=== PATIENT | female | born 1950 | race Caucasian/White ===

== ENCOUNTER 2018-06-09 00:27 | Outpatient (CLI) | payer MEDICARE, OTHER, SELFPAY ==
--- NOTE | 2018-06-09 08:45 | DI.MAMMO_ITS ---
SYMPTOM/DIAGNOSIS: SCREENING, Z12.431 MAMMOGRAMS: Mammograms were interpreted according to the usual protocol including computer analysis with CAD system, tomosynthesis and C view imaging. Comparison with prior examinations. No masses or microcalcifications are seen. There is nothing to suggest malignancy. Breast density B. IMPRESSION: Category 1-B. Negative mammogram. Routine screening is recommended. MQSA ASSESSMENT OF FINDINGS: Negative. Category 1. Patient will receive a letter notifying them of these results. BI-RADS category B. There are scattered areas of fibroglandular density.
== END 2018-06-09 00:47 ==
PROVIDERS: PCP Nurse Practitioner Family; Visit Provider Nurse Practitioner Family
DX: Z12.31 Encounter for screening mammogram for malignant neoplasm of breast (principal)
CPT/HCPCS: 77063; 77067

== ENCOUNTER 2018-10-06 10:42 | Emergency (ER) | payer MEDICARE, OTHER, SELFPAY ==
[2018-10-06] VITALS (22 sets, daily range): BP systolic 95–147; BP diastolic 46–94; PULSE 55–73; RESP 12–21; TEMP 36.8–37.1; O2SAT 90–98
--- NOTE | 2018-10-06 11:12 | ED.GENADUL_ITS ---
Discharge Plan Disposition Patient Disposition: HOME Condition: Good Discharge Details Chief Complaint: SOB Clinical Impression: Community acquired pneumonia, Cough with hemoptysis Primary Care Provider: Kalyani Kulkarni ED Provider: Terell Cloud Home Meds and New Rx's Prescriptions: New prednisone 50 MG tablet 50 mg PO DAILY Qty: 5 RF: 0 doxycycline hyclate 100 mg tablet 100 mg PO BID Qty: 20 RF: 0 No Action multivitamin [Daily Multi-Vitamin] 1 EACH tablet 1 ea PO DAILY RF: 0 triamcinolone acetonide 60 ML lotion 1 ml Topical TID PRNQty: 1 RF: 1 levothyroxine 100 MCG tablet 100 mcg PO DAILY Qty: 90 RF: 3 simvastatin 20 MG tablet 20 mg PO HS Qty: 90 RF: 3 hydrochlorothiazide 25 MG tablet 25 mg PO DAILY Qty: 90 RF: 3 escitalopram oxalate [Lexapro] 10 MG tablet 10 mg PO DAILY Qty: 90 RF: 3 Metoprolol Succinate [Toprol Xl] 50 MG TAB.ER.24H 50 mg PO DAILY Qty: 90 RF: 3 One-Per-Day [place]-3 1 EACH capsule,delayed release(DR/EC) 1 cap PO DAILY RF: 0 cholecalciferol (vitamin D3) [Vitamin D3] 2,000 UNIT capsule 2,000 unit PO DAILY RF: 0 Discharge Instructions Instructions: Hemoptysis (ED), Community Acquired Pneumonia (ED) Additional Instructions: Please take medication as directed. Please use your home inhaler every 6 hours for the next 2 days. if you notice any worsening of your symptoms, or any new symptoms such as vomiting, diarrhea, fever, chills, shortness of breath, chest pain, numbness, weakness, or fainting , please return immediately to the emergency department for reevaluation. Please follow up with your primary care provider as soon as possible for reassessment and reevaluation. As always, it was a pleasure participating in your medical care today. 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 Hemoptysis is been present for the last 2 days initially with very minimal streaking in her sputum, and then she did expectorate a small clot today, but has had no subsequent episodes since then. Exam demonstrates reassuring vital signs, no concerning lung sounds, no calf tenderness. However because of her symptoms, and family history we will get a CT angiogram to rule out malignancy or PE. I feel her symptoms may be secondary to chronic bronchitis. 1:02 PM Patient's laboratory workup is returned benign, EKG and troponin are normal. Vital signs continue to be reassuring with no evidence of respiratory compromise or other significant abnormality. She has had no hemoptysis here in the ED, and shows no signs of tracy hemoptysis. No signs of respiratory risk at this time. CT scan has returned and per Dr. Villagran, there is no evidence of pulmonary embolism, mass, but there is mild right lower lobe atelectasis. The signs and symptoms are consistent with the patient's symptomatology suspected community- acquired pneumonia. Will start on doxycycline, give steroids to help decrease any significant intrapulmonary inflammation, and recommend close follow-up with her primary care provider. We did discuss the importance of follow-up with eventual pulmonology if her symptoms do not improve and the patient understands. We discussed red flags which return. I have extensively reviewed the treatment plan and discharge instructions with the patient. I have addressed all patient concerns at this time. The patient was made aware of what symptoms to monitor for that would warrant a return to the emergency department. Discussed the plan with the patient, they demonstrate verbal understanding and agreement with our assessment and plan at this time. EKG 10: 53 Rate 68, intervals normal, sinus rhythm, no ST elevation or depressions, no T wave inversions, questionable small Q wave in lead III. HPI General Date/Time Provider Initiated Documentation: 10/06/18 10:58 . HPI Narrative: This is a 68-year-old female with a past medical history of diabetes, family history of lung cancer, she has never smoked before. She presents today for evaluation of cough for the last 2-3 weeks and hemoptysis for the last 2 days. Patient states that she has had multiple other sick contacts at home who have had mild cough and congestion. She to develop the symptoms. Cough is usually a small amount of white/yellow sputum production, however over the last 48 hours she has had a small amount of red streaking, and then this morning she had one episode of a small clot that she coughed up, however no some subsequent episodes of this. She denies any chest pain, or shortness of breath. She denies any pain in her arm neck or shoulders. She denies any vomiting or diarrhea. Denies PE risk factors such as r immobilization, recent surgery, prior history of DVT or PE, family history of PE or DVT, morbid obesity, exogenous estrogen and smoking, history of cancer. He does admit to some occasional longer trips in the car over the last few weeks, but denies any other immobilization. Family history is also positive for lupus but she denies any family history of Zachary's granulomatosis. She is not on blood thinners. She denies fever or chills. No other complaints at this time. Related Data Home Medications Medication Instructions Recorded Confirmed multivitamin [Daily Multi-Vitamin] 1 ea PO DAILY 10/21/14 10/06/18 One-Per-Day [place]-3 1 cap PO DAILY 02/22/15 10/06/18 cholecalciferol (vitamin D3) 2,000 unit PO DAILY 02/22/15 10/06/18 [Vitamin D3] triamcinolone acetonide 1 ml TOPICAL TID PRN #1 bottle 04/23/16 10/06/18 escitalopram oxalate [Lexapro] 10 mg PO DAILY #90 tab-cap 12/03/17 10/06/18 hydrochlorothiazide 25 mg PO DAILY #90 tab-cap 12/03/17 10/06/18 levothyroxine 100 mcg PO DAILY #90 tab-cap 12/03/17 10/06/18 simvastatin 20 mg PO HS #90 tab-cap 12/03/17 10/06/18 doxycycline hyclate 100 mg PO BID #20 tab 10/06/18 prednisone 50 mg PO DAILY #5 tab 10/06/18 Previous Rx's Medication Instructions Recorded escitalopram oxalate [Lexapro] 10 mg PO DAILY #90 tab-cap 12/03/17 hydrochlorothiazide 25 mg PO DAILY #90 tab-cap 12/03/17 levothyroxine 100 mcg PO DAILY #90 tab-cap 12/03/17 simvastatin 20 mg PO HS #90 tab-cap 12/03/17 doxycycline hyclate 100 mg PO BID #20 tab 10/06/18 prednisone 50 mg PO DAILY #5 tab 10/06/18 Allergies Allergy/AdvReac Type Severity Reaction Status Date / Time Sulfa (Sulfonamide Allergy Intermediate corneal Unverified 10/06/18 10:58 Antibiotics) infection lisinopril AdvReac Cough Unverified 10/06/18 10:58 General Stated Complaint: SOB YINA: 3 Review of Systems Review of Systems All systems reviewed & are unremarkable except as noted in HPI and below PFSH Medical History Generalized anxiety disorder (Chronic) Rosacea (Inactive) Hyperlipemia (Chronic) Essential hypertension (Chronic) 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 Sister Depression Brother Essential hypertension Depression Grandfather Neoplasm Grandfather Heart disease Grandmother Heart disease Grandmother No problems noted. Sister Alcohol abuse Essential hypertension Depression Son No problems noted. Daughter Diabetes Essential hypertension Social History Smoking and Tabacco status: Former Tobacco Use Exam Narrative Exam Narrative: 1.Const: Well-nourished, Well-developed, appearing stated age 2.Eyes: PERRL, no conjunctival injection, and symmetrical lids. 3.ENT: Atraumatic external nose and ears. Moist MM. Neck: Symmetric, trachea midline, No thyromegaly. 4.CVS: +S1/S2, No murmurs or gallops. Peripheral pulses 2+ and equal in all extremities. Brisk capillary refill in all extremities. 5.RESP: Unlabored respiratory effort. Clear to auscultation bilaterally. No wheezes rales or rhonchi 6.GI: Soft, Nontender/Nondistended, No hepatosplenomegaly. No guarding or rebound. 7.MSK: Normocephalic/Atraumatic, Extremities w/o deformity or ttp No cyanosis or clubbing, Normal movement of all extremities. No calf tenderness. 8.Skin: Warm, Dry. No rashes or lesions. 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 Sensation grossly intact, no focal neurologic deficits. 10.Psych: (AAO) x3. Appropriate mood and affect Course Vital Signs Temperature 36.8 C 10/06/18 10:54 Pulse 70 10/06/18 10:54 Respiratory Rate 10/06/18 10:54 Blood Pressure 134/94 H 10/06/18 10:54 Pulse Oximetry 98 10/06/18 10:54 Temperature 36.8 C 10/06/18 10:54 Temperature Source Temporal Artery Scan 10/06/18 10:54 Pulse 70 10/06/18 10:54 Respiratory Rate 10/06/18 10:57 Respiratory Effort Non-Labored 10/06/18 10:57 Respiratory Depth Normal 10/06/18 10:57 Respiratory Pattern Normal 10/06/18 10:57 Blood Pressure 134/94 H 10/06/18 10:54 Blood Pressure Position Supine 10/06/18 10:54 Pulse Oximetry 98 10/06/18 10:54 Oxygen Delivery Method Room Air 10/06/18 10:54 Oxygen Flow Rate 0 10/06/18 10:54 Pain Level 0 10/06/18 10:54
[2018-10-06 11:27] LABS: Abs Immature Grans 0.01 k/cumm (0.0-0.09); Absolute Basophil Count 0.03 k/cumm (0.0-0.2); Absolute Eosinophil Count 0.23 k/cumm (0.0-0.7); Absolute Lymphocyte Count 1.47 k/cumm (1.2-3.4); Absolute Monocyte Count 0.62 k/cumm (0.11-0.7); Absolute Neutrophil Count 4.41 k/cumm (1.2-6.7); Basophils % 0.4; Eosinophils % 3.4; HCT 43.9 % (36.0-46.0); HGB 14.9 g/dL (12.0-15.5); Immature Grans % 0.1; Lymphocytes % 21.7; Mean Corp. HGB Concentration 33.9 g/dL (32.0-36.0); Mean Corpuscular Volume 97.1 fL (80-95); Mean Platelet Volume 9.7 fL (8.0-11.0); Monocytes % 9.2; Neutrophils % 65.2; Platelet Count 224 x1000/uL (130-400); RBC 4.52 m/cumm (4.00-5.20); RBC Distribution Width 13.8 % (11.7-14.6); White Blood Cell Count 6.77 k/cumm (4.4-10.8)
[2018-10-06 11:41] LABS: ALT 28 U/L (12-78); AST 19 U/L (15-37); Albumin 3.8 g/dL (3.4-5.0); Alkaline Phosphatase 70 U/L (46-116); Anion Gap 6.1 mmol/L (3-11); BUN 12 mg/dL (7-18); Bilirubin, Total 0.4 mg/dL (0.2-1.0); CO2 31.9 mmol/L (21.0-32.0); CREATININE 0.66 mg/dL (0.55-1.02); Calcium 9.5 mg/dL (8.5-10.1); Chloride 105 mmol/L (98-107); Glucose 103 mg/dL (70-100); NT-proBNP 47 pg/mL; Potassium 3.7 mmol/L (3.5-5.1); Sodium 143 mmol/L (136-145); Total Protein 7.2 g/dL (6.4-8.2)
[2018-10-06 11:42] LABS: Troponin I < 0.02 ng/mL (0.00-0.06)
--- NOTE | 2018-10-06 12:30 | DI.CT_ITS ---
SYMPTOMS/DIAGNOSIS: COUGH X 2 WEEKS, HEMOPTYSIS, FAMILY H/O LUNG CA CHEST CT FOR PULMONARY EMBOLISM: CT angiography was performed with multi slice acquisition and multi planar and 3D reconstruction. The pulmonary arteries and aorta are well opacified with IV contrast. There is mild respiratory motion at the lung bases. No pulmonary artery filling defects are seen. There is no evidence of aortic dissection or aneurysm. There are focal areas of atelectasis in the lower lobes, right greater than left. No pleural or pericardial effusions are seen. No mass or adenopathy is seen. IMPRESSION: Mild lower lobe atelectasis. No evidence of pulmonary emboli or mass.
[2018-10-06] MEDS: Omnipaque 350 MG/ML 100 ML BTL IJ (12:31)
== END 2018-10-06 13:18 | disposition home or self-care (01) ==
PROVIDERS: Emergency Provider Student in an Organized Health Care Education/Training Program; PCP Nurse Practitioner Family
DX: J18.9 Pneumonia, unspecified organism (principal); R04.2 Hemoptysis; Z87.891 Personal history of nicotine dependence
CPT/HCPCS: 36415; 71275; 80053; 93005; 99285; 83880; 84484; 85025; 93010; J3490

== ENCOUNTER 2018-12-04 09:44 | Outpatient (CLI) | payer MEDICARE, OTHER, SELFPAY ==
[2018-12-04 11:19] LABS: Hemoglobin A1C 5.8 % (4.5-6.2)
[2018-12-04 11:33] LABS: Cholesterol 159 mg/dL (50-200); HDL Cholesterol 43 mg/dL (40-60); LDL CHOLESTEROL 95 mg/dL (<100); TSH 1.09 uIU/mL (0.358-3.74); Triglyceride 108 mg/dL (30-150)
[2018-12-04 11:52] LABS: FREE T4 1.16 ng/dL (0.76-1.46)
== END 2018-12-04 10:04 ==
PROVIDERS: PCP Nurse Practitioner Family; Visit Provider Nurse Practitioner Family
DX: E03.9 Hypothyroidism, unspecified (principal); E78.5 Hyperlipidemia, unspecified; R73.03 Prediabetes
CPT/HCPCS: 36415; 80061; 83721; 83036; 84439; 84443

== ENCOUNTER 2019-02-27 04:16 | Outpatient (CLI) | payer MEDICARE, OTHER, SELFPAY ==
[2019-02-27 11:01] LABS: HCT 43.3 % (36.0-46.0); HGB 14.8 g/dL (12.0-15.5); Mean Corp. HGB Concentration 34.2 g/dL (32.0-36.0); Mean Corpuscular Hemoglobin 33.4 pg (27.0-33.0); Mean Corpuscular Volume 97.7 fL (80-95); Platelet Count 215 x1000/uL (130-400); RBC 4.43 m/cumm (4.00-5.20); RBC Distribution Width 13.9 % (11.7-14.6)
[2019-02-27 11:21] LABS: Hemoglobin A1C 5.9 % (4.5-6.2)
[2019-02-27 11:23] LABS: ALT 28 U/L (12-78); AST 18 U/L (15-37); Alkaline Phosphatase 62 U/L (46-116); Anion Gap 10.6 mmol/L (3-11); BUN 13 mg/dL (7-18); Bilirubin, Total 0.4 mg/dL (0.2-1.0); CO2 27.4 mmol/L (21.0-32.0); CREATININE 0.57 mg/dL (0.55-1.02); Calcium 9.3 mg/dL (8.5-10.1); Chloride 105 mmol/L (98-107); FREE T4 1.12 ng/dL (0.76-1.46); Glucose 114 mg/dL (70-100); Magnesium 2.2 mg/dL (1.8-2.4); Sodium 143 mmol/L (136-145); TSH 1.64 uIU/mL (0.36-3.74); Total Protein 6.8 g/dL (6.4-8.2)
[2019-02-27 11:51] LABS: ESR 17 mm/hr (0-30)
[2019-02-27 12:04] LABS: Vitamin B12 1172 pg/mL (193-986)
[2019-02-27 12:05] LABS: Folate > 20.0 ng/mL (8.6-20.0)
== END 2019-02-27 04:36 ==
PROVIDERS: PCP Nurse Practitioner Family; Visit Provider Nurse Practitioner Family
DX: R20.2 Paresthesia of skin (principal); R73.03 Prediabetes; I10 Essential (primary) hypertension; E03.9 Hypothyroidism, unspecified; E78.5 Hyperlipidemia, unspecified
CPT/HCPCS: 36415; 80053; 85027; 85652; 82607; 82746; 83036; 83735; 84439; 84443

== ENCOUNTER 2019-07-13 00:07 | Outpatient (CLI) | payer MEDICARE, OTHER, SELFPAY ==
--- NOTE | 2019-07-13 16:03 | DI.MAMMO_ITS ---
EXAM: MG MAMMO SCREENING CLINICAL HISTORY: screening Z12.39. TECHNIQUE: Full field digital CC and MLO mammographic images were obtained with 3D tomosynthesis and utilizing computer aided detection (CAD). COMPARISON: 2009 through 2017. FINDINGS: Breast density: Category B - Scattered areas of fibroglandular density Masses/Architectural Distortion: None seen. Microcalcifications: No suspicious pleomorphic-type calcifications are seen. Skin Thickening/Nipple Retraction: None. Axilla: Unremarkable. IMPRESSION: 1. BI-RADS category 1, negative. No significant interval change with no specific features of maligna ncy noted. 2. Unless there is more urgent need, screening mammography is recommended, as per [employer] guidelines. A negative radiographic report should not delay biopsy if a dominant or clinically suspicious mass is present. Up to ten percent of cancers are not identified on mammography. A negative report may reinforce clinical impression. Adenosis and dense breasts may obscure an underlying neoplasm. False positive reports average 6 to 10%. Patient will receive a letter notifying them of these results.
== END 2019-07-13 00:27 ==
PROVIDERS: PCP Nurse Practitioner Family; Visit Provider Nurse Practitioner Family
DX: Z12.31 Encounter for screening mammogram for malignant neoplasm of breast (principal)
CPT/HCPCS: 77063; 77067

== ENCOUNTER 2019-08-20 10:36 | Emergency (ER) | payer MEDICARE, OTHER, SELFPAY ==
[2019-08-20 10:40] VITALS: BP 141/70; PULSE 67; RESP 18; TEMP 36.4; O2SAT 97
--- NOTE | 2019-08-20 10:46 | ED.GENADUL_ITS ---
Discharge Plan Disposition Patient Disposition: HOME Discharge Details Chief Complaint: Orthopedic Clinical Impression: Fracture of proximal humerus Primary Care Provider: Kalyani Kulkarni ED Provider: Yahir Vaca Home Meds and New Rx's Prescriptions: New oxycodone 5 mg capsule 5 mg PO Q6H PRN (Reason: pain) Qty: 7 RF: 0 No Action escitalopram oxalate [Lexapro] 10 mg tablet 10 mg PO DAILY Qty: 90 RF: 4 triamcinolone acetonide 0.1 % cream 1 applic TP DAILY PRN (Reason: dermatitis) Qty: 80 RF: 1 simvastatin 20 mg tablet 20 mg PO HS Qty: 90 RF: 4 hydrochlorothiazide 25 mg tablet 25 mg PO DAILY Qty: 90 RF: 4 metoprolol succinate 50 mg tablet extended release 24 hr 50 mg PO DAILY Qty: 90 RF: 4 levothyroxine 100 mcg tablet 100 mcg PO DAILY Qty: 90 RF: 4 varicella-zoster gE-AS01B (PF) 50 mcg/0.5 mL suspension for reconstitution 0.5 ml IM ONCE Qty: 1 RF: 0 ibuprofen 800 mg tablet 800 mg PO TID PRN (Reason: pain) Qty: 90 RF: 1 multivitamin [Daily Multi-Vitamin] 1 EACH tablet 1 ea PO DAILY RF: 0 One-Per-Day [place]-3 1 EACH capsule,delayed release(DR/EC) 1 cap PO DAILY RF: 0 cholecalciferol (vitamin D3) [Vitamin D3] 2,000 UNIT capsule 2,000 unit PO DAILY RF: 0 Discharge Instructions Instructions: Proximal Humerus Fracture (ED) Additional Instructions: Your x-rays confirm a fracture involving the upper arm. We will place you into a simple sling at which point you will need to follow-up with orthopedics to discuss further definitive management. Start taking Tylenol 500 m tabs every 8 hours as needed for pain. You can also supplement ibuprofen 200 m tabs every 8 hours for pain. I have also provided you with a prescription for stronger pain medication, only use if pain is out of control. Return to the emergency department should you develop severe numbness and/or weakness in the forearm/wrist/hand. You must stay in the sling until you are evaluated by orthopedics. Referrals: Rich Vanegas MD [ [facility] STAFF PHYSICIAN] - 3 days Discharge Data Discharge Date/Time-TO BE ENTERED AT DEPARTURE: 08/20/19 11:47 Medical Decision Making This is a nontoxic-appearing 69-year-old female who presents to the emergency department with the above chief complaint. Vital signs stable. Physical exam demonstrates focal tenderness over the right mid proximal humerus. Neurovascularly intact. No other evidence of injury elsewhere. X-ray significant for comminuted slightly displaced proximal humerus fracture. Case discussed with Dr. Vanegas from orthopedics. He is recommending simple sling and follow-up in the office. Patient educated on pain management at home along with return precautions. HPI General Date/Time Provider Initiated Documentation: 08/20/19 10:45 . HPI Narrative: Patient is a 69-year-old female with significant medical history for hypertension on metoprolol not taking any oral anticoagulation who presents to the emergency department status post fall. Patient slipped on the ice striking her right shoulder. She denies any head injury or LOC. No neck pain or tenderness. She denies any numbness or tingling in her right arm. She has been unable to move her right shoulder since the fall. Related Data Home Medications Medication Instructions Recorded Confirmed multivitamin [Daily Multi-Vitamin] 1 ea PO DAILY 10/21/14 08/20/19 One-Per-Day [place]-3 1 cap PO DAILY 02/22/15 08/20/19 cholecalciferol (vitamin D3) 2,000 unit PO DAILY 02/22/15 08/20/19 [Vitamin D3] escitalopram oxalate 10 mg tablet 10 mg PO DAILY #90 tab-cap 12/04/18 08/20/19 hydrochlorothiazide 25 mg tablet 25 mg PO DAILY #90 tab-cap 12/04/18 08/20/19 levothyroxine 100 mcg tablet 100 mcg PO DAILY #90 tab-cap 12/04/18 08/20/19 metoprolol succinate 50 mg 50 mg PO DAILY #90 tab 12/04/18 08/20/19 tablet,extended release 24 hr simvastatin 20 mg tablet 20 mg PO HS #90 tab-cap 12/04/18 08/20/19 triamcinolone acetonide 0.1 % 1 applic TP DAILY PRN #80 gm 12/04/18 08/20/19 topical cream varicella-zoster [id number] (PF) 50 0.5 ml IM ONCE #1 each 12/04/18 08/20/19 mcg/0.5 mL IM susp, kit ibuprofen 800 mg tablet 800 mg PO TID PRN #90 tab 02/26/19 08/20/19 oxycodone 5 mg PO Q6H PRN #7 cap 08/20/19 Previous Rx's Medication Instructions Recorded escitalopram oxalate 10 mg tablet 10 mg PO DAILY #90 tab-cap 12/04/18 hydrochlorothiazide 25 mg tablet 25 mg PO DAILY #90 tab-cap 12/04/18 levothyroxine 100 mcg tablet 100 mcg PO DAILY #90 tab-cap 12/04/18 metoprolol succinate 50 mg 50 mg PO DAILY #90 tab 12/04/18 tablet,extended release 24 hr simvastatin 20 mg tablet 20 mg PO HS #90 tab-cap 12/04/18 triamcinolone acetonide 0.1 % 1 applic TP DAILY PRN #80 gm 12/04/18 topical cream varicella-zoster [id number] (PF) 50 0.5 ml IM ONCE #1 each 12/04/18 mcg/0.5 mL IM susp, kit ibuprofen 800 mg tablet 800 mg PO TID PRN #90 tab 02/26/19 oxycodone 5 mg PO Q6H PRN #7 cap 08/20/19 Allergies Allergy/AdvReac Type Severity Reaction Status Date / Time Sulfa (Sulfonamide Allergy Intermediate corneal Unverified 08/20/19 10:47 Antibiotics) infection lisinopril AdvReac Cough Unverified 08/20/19 10:47 General Stated Complaint: Orthopedic YINA: 3 Review of Systems Constitutional Constitutional: Denies lethargy and Denies weakness ENT Ears, Nose, Mouth, and Throat: Denies neck pain Cardiovascular Cardiovascular: Denies lightheadedness, Denies palpitations and Denies dyspnea Respiratory Respiratory: Denies pain on inspiration and Denies dyspnea Musculoskeletal Musculoskeletal: Denies back pain, Reports limited range of motion, Denies muscle weakness, Denies neck pain, Denies numbness and Denies tingling Neurologic Neurologic: Denies numbness, Denies tingling and Denies weakness Endocrine Endocrine: Denies palpitations Hematologic/Lymphatic Hematologic/Lymphatic: Denies easy bleeding and Denies easy bruising [facility] Medical History Carpal tunnel syndrome (Acute) S/p left endoscopic release 2014, right hasn't been treated yet 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) Essential hypertension (Chronic) Generalized anxiety disorder (Chronic) Hyperlipemia (Chronic) Hypothyroidism (Chronic) Pre-diabetes (Chronic) Rosacea (Inactive) Surgical History H/O: hysterectomy (Inactive ~1995) Ovaries remain History of carpal tunnel surgery of left wrist (Inactive 02/23/15) History of left mastoidectomy (Inactive ~1984) S/P colonoscopy (Acute 03/26/16) S/P tonsillectomy (Acute ~1955) Status post right hip replacement (Inactive ~2009) Family History Mother , 80 of CHF Depression Heart disease Asthma Breast cancer Lung cancer Type 2 diabetes mellitus Father , at 42 of MVA No problems noted. Sister Depression Hyperlipidemia Sister Depression Essential hypertension Alcohol abuse Brother Essential hypertension Hyperlipidemia Son No problems noted. Daughter Type 2 diabetes mellitus Essential hypertension Maternal Grandfather Prostate cancer Maternal Grandmother Heart disease Hyperlipidemia Hypertension Paternal Grandfather Heart disease Paternal Grandmother No problems noted. Social History Smoking/Tobacco Use Status: Former Tobacco Use Quit Date: 08/05/94 Second Hand Exposure: Yes Alcohol Intake: current Alcohol Intake frequency: holidays/special occasions only Alcohol type: wine Drug use: Never Substance use type: does not use Caregiver/Support person: No Household members: significant other Housing: house Communication Needs: Hard of Hearing and Corrective Lenses Do you need help understanding health information?: Rarely Pets and animals: No Sexually active: Yes Do you think of yourself as: straight/heterosexual Current gender identity: female What is your relationship status?: living with partner How often do you talk on the phone with friends or family?: three or more times per week How often do you get together with friends or relatives?: twice per week How often do you attend mandaeism or sikhism services?: decline to answer Do you belong to any clubs or organized social groups?: no Panel score (0-1 are the most socially isolated patients): 2 What type of physical activity do you participate in: walking Duration: 15-30 minutes/day Frequency: daily Shandra/Sikh: Lutheran Special shandra needs: No Seatbelt use: always Drive intox or ride w/intox seasonal driver: No Do you feel safe at home: Yes Do you feel safe in your relationship?: Yes Female Reproductive History Menstrual Menopause type: surgical History History 3 Para 2 Hx # Term Pregnancies Multiple births Hx # Pregnancies Ectopic pregnancies AB induced Hx Number of Living Children 2 AB spontaneous 1 Exam Const General: cooperative, healthy appearing and no acute distress Orientation: alert and awake HENIN Head: normal to inspection, normocephalic and atraumatic Eyes Pupils: PERRL EOM: EOM intact bilaterally Neck Neck: normal visual inspection and full ROM Chest Chest: normal inspection of the chest and normal palpation of entire chest wall Resp Effort & Inspection: normal respiratory effort and able to speak in complete sentences Auscultation: clear to auscultation bilaterally Cardio Pulses: brachial pulses present, radial pulses present and ulnar pulses present Back/Spine/Pelvis Cervical Spine: normal cervical lordosis and cervical ROM normal Thoracic/Lumbar Spine: thoracic and lumbar spine normal to inspection Skin Trauma: no lacerations or abrasions Extrem Right upper extremity: shoulder/upper arm Details: tenderness Location: of the proximal humerus and of the mid-shaft humerus and axillary nerve sensory function normal Course Vital Signs Vital signs: Vital Signs Temperature 36.4 C L 08/20/19 10:40 Pulse 67 08/20/19 10:40 Respiratory Rate 18 08/20/19 10:40 Blood Pressure 141/70 H 08/20/19 10:40 Pulse Oximetry 97 08/20/19 10:40 Temperature 36.4 C L 08/20/19 10:40 Temperature Source Temporal Artery Scan 08/20/19 10:40 Pulse 67 08/20/19 10:40 Respiratory Rate 18 08/20/19 10:40 Blood Pressure 141/70 H 08/20/19 10:40 Blood Pressure Position Sitting 08/20/19 10:40 Pulse Oximetry 97 08/20/19 10:40 Oxygen Delivery Method Room Air 08/20/19 10:40 Oxygen Flow Rate 0 08/20/19 10:40 Pain Level 8 08/20/19 10:40
[2019-08-20] MEDS: Acetaminophen 500 MG TAB 1000 MG PO (10:52)
[2019-08-20] MEDS: oxyCODONE 5 MG TAB PO (10:52)
[2019-08-20 10:55] VITALS: BP 129/54; PULSE 62; O2SAT 94
--- NOTE | 2019-08-20 11:03 | DI.RAD_ITS ---
EXAM: XR SHOULDER RT COMPLETE 2+V INDICATION: mid/prox humerus pain s/p fall. NV intact. COMPARISON: No exams were available for comparison TECHNIQUE: 2D digital imaging was performed. FINDINGS: There is a comminuted fracture of the humeral head. A transverse component extends through the surgi [place] neck. The vertically oriented component extends through greater tuberosity. There is displaceme nt of the humeral shaft medially. There is no evidence of glenohumeral joint dislocation. The joint space does appear mildly widened. The AC joint and visualized right ribs appear intact. IMPRESSION: Comminuted fracture displaced fracture of the humeral head.
[2019-08-20 11:47] VITALS: BP 128/49; PULSE 58; RESP 16; TEMP 36.7; O2SAT 97
[2019-08-20 11:49] VITALS: BP 128/49; PULSE 58; RESP 16; TEMP 36.7; O2SAT 97
== END 2019-08-20 11:47 | disposition home or self-care (01) ==
LOC: ER 12:10
PROVIDERS: Emergency Provider Physician Assistant; PCP Nurse Practitioner Family
DX: S42.291A Other displaced fracture of upper end of right humerus, initial encounter for closed fracture (principal); S42.211A Unspecified displaced fracture of surgical neck of right humerus, initial encounter for closed fracture; W00.0XXA Fall on same level due to ice and snow, initial encounter; I10 Essential (primary) hypertension
CPT/HCPCS: 23600; 73030; L3650

== ENCOUNTER → 2019-08-25 13:39 | Outpatient (BNVA) | payer MEDICARE, OTHER, SELFPAY | PROVIDERS: PCP Nurse Practitioner Family; Referring Provider Nurse Practitioner Family; Visit Provider Student in an Organized Health Care Education/Training Program | DX: S42.291A Other displaced fracture of upper end of right humerus, initial encounter for closed fracture (principal); W00.0XXA Fall on same level due to ice and snow, initial encounter | CPT/HCPCS: 99204; 99215 ==

== ENCOUNTER 2019-08-25 15:45 | Outpatient (CLI) | payer MEDICARE, OTHER, SELFPAY ==
--- NOTE | 2019-08-25 16:02 | DI.CT_ITS ---
EXAM: CT UPPER EXTREMITY RT WO CLINICAL HISTORY: Preoperative planning,CLOSED FX RT PROXIMAL HUMERUS, S42.291A COMPARISON: XR SHOULDER RT COMPLETE 2+V from 08/20/2019 FINDINGS: There is a comminuted fracture of the proximal humerus. The fracture involves the surgical neck and e xtends proximally to involve the greater tuberosity. There is impaction of the fracture. The distal fracture fragment is medially displaced, approximately 1/3 shaft width. The humeral head may be sli ghtly inferiorly subluxed relative to the glenoid. Degenerative changes are seen at the acromioclavicular joint. No other fracture is identified. Visu alized lungs are clear. There is mild edema in the soft tissues. IMPRESSION: Comminuted displaced proximal humeral fracture as described above.
== END 2019-08-25 16:05 ==
PROVIDERS: PCP Nurse Practitioner Family; Visit Provider Student in an Organized Health Care Education/Training Program
DX: S42.211A Unspecified displaced fracture of surgical neck of right humerus, initial encounter for closed fracture (principal)
CPT/HCPCS: 99215; 73200

== ENCOUNTER 2019-08-27 07:36 | Inpatient (IN) | payer MEDICARE, OTHER, SELFPAY ==
[2019-08-27] VITALS (11 sets, daily range): BP systolic 83–150; BP diastolic 42–75; PULSE 66–73; RESP 16–18; TEMP 36–37.5; O2SAT 96–100
[2019-08-27] MEDS: Lactated Ringers 1,000 ML 100 ML IV ×3 (08:10→22:27)
[2019-08-27] MEDS: Bupivacaine 0.5% Pres-Free 30 ML VIAL (08:40)
[2019-08-27] MEDS: Bupivacaine LIPOSOME/PF 133 MG/10 ML VIAL IJ (08:40)
[2019-08-27] MEDS: ceFAZolin 2 GM/50 ML BAG IVPB (09:04)
[2019-08-27] MEDS: Tranexamic Acid 1,000 MG/10 ML VIAL 1000 MG (09:15)
--- NOTE | 2019-08-27 13:31 | DI.RAD_ITS ---
EXAM: XR HUMERUS RT CLINICAL HISTORY: Closed fracture of right proximal humerus. TECHNIQUE: 2D digital imaging was performed. Fluoro time: 79.6 sec, 5.66 mGy COMPARISON: No exams were available for comparison FINDINGS: Fluoroscopy was utilized by orthopedic surgery during the reduction and internal fixation of the prox imal right humeral fracture. The alignment appears near anatomic. The orthopedic hardware appears i n good position. Please refer to the procedure report for complete details.
--- NOTE | 2019-08-27 13:53 | ROE_ITS ---
Date of service: 08/27/19 Time of Service: 13:41 Operative Note Operative Note DATE OF PROCEDURE: 08/27/19 PRE-OP DIAGNOSIS: 1. Right displaced three-part proximal humerus fracture POST-OP DIAGNOSIS: other 1. Right displaced three-part proximal humerus fracture 2. Right incarcerated long head of the biceps tendon PROCEDURE: 1. Right proximal humerus ORIF 2. Right long head of the biceps open tenodesis SURGEON: Navid Su INSTALLER TECHNICIAN: Stephan Herrera ANESTHESIA: GETA and regional ESTIMATED BLOOD LOSS: 250 COMPLICATIONS: None Patient was transported to: PACU Patient's condition: stable Implants: Synthes 3.5 mm LCP proximal humerus plate Indications: Please see complete medical record for details. Procedure Description: The patient was taken to the operating room and transferred to the operating room table. Anesthesia was induced. All bony prominences were well-padded. Preoperative antibiotics were administered. 1 g of TXA was administered. The right shoulder was prepped and draped in the usual sterile fashion. The correct patient, procedure, and side of the procedure were all verified prior to incision. The standard deltopectoral approach was used to obtain access to the proximal humerus fracture. Care was taken to mobilize and protect the cephalic vein medially. Hemorrhagic bursa was removed. Fracture fragments were identified. The anterior, superior, and posterior rotator cuff was tagged using #2 FiberWire at the tendon bone junction for later mobilization repair. Care was taken to avoid dissection medial to the humeral head and neck to preserve blood flow as best possible. The biceps tendon was identified incarcerated between the humeral head greater tuberosity and shaft fracture and components with the distal tendon still present in the groove. A biceps tenodesis was performed in situ to the superior border of the pectoralis major tendon using #2 FiberWire in a [id number] fashion twice. The long head of the biceps remnant was was freed up from the fracture fragments and used to identify the rotator interval before amputating it from the superior labrum. Humeral head, greater tuberosity, and humeral shaft fracture fragments were carefully mobilized and provisionally fixated with bone reduction forceps and K wires. An anatomic precontoured proximal humerus locking plate was placed appropriately lateral to the bicipital groove and distal to superior cuff insertion. This plate was pro visionally held in place using K wires and a cortex shaft screw placed in the oblong hole to allow for adjustments. The reduction and plate placement were confirmed and optimized on orthogonal external rotation and internal rotation AP fluoroscopy. The most superior locking screws were then filled using an osteoporotic bone technique of drilling only the lateral cortex and then using the depth gauge as a sound for screw measurement taking care not to penetrate the articular surface. The distal most locking screws in the shaft were then placed in a bicortical fashion. The remainder of the proximal locking screw options were filled to obtain the most spread and purchase in the humeral head. Orthogonal AP external rotation and internal rotation fluoroscopy as well as modified axial views confirmed appropriate fracture site reductio and hardware placement. Careful inspection revealed to posterior screws that were prominent and they were removed and replaced with a shorter length locking screws and at this point additional x-rays showed no screw prominence or penetration into the joint. The #2 FiberWire previously placed in the rotator cuff was used to augment the repair and secure the anterior superior and posterior superior rotator cuff to the suture holes in the plate. The shoulder was mobilized through a moderate arc of motion and fixation was found to be stable. At 90 d egrees of abduction and external rotation the plate did not impinge with the acromion. The wound was copiously irrigated with normal saline. 1 g of vancomycin powder was distributed about the wound. The interval was reapproximated using 0 Vicryl in an interrupted fashion taking care to bury the cephalic vein atraumatically. Subcutaneous tissues were copiously irrigated with normal saline. Subcutaneous tissue was closed in 2-0 Monocryl in buried interrupted fashion. The skin was closed with 3-0 Monocryl in a buried running subcuticular fashion. Skin glue was applied over the incision followed by a silver impregnated bandage. The right upper sternal wound was carefully placed into a shoulder immobilizer. The patient woke from anesthesia without complication was taken to recovery room in stable condition.
[2019-08-27] MEDS: ceFAZolin 1 GM/50 ML BAG IVPB (17:18)
[2019-08-27] MEDS: Aspirin E.C. 81 MG TABEC PO (17:42)
[2019-08-27] MEDS: Acetaminophen 500 MG TAB 1000 MG PO (19:11)
[2019-08-28] MEDS: ceFAZolin 1 GM/50 ML BAG IVPB ×2 (00:14→09:26)
[2019-08-28] MEDS: oxyCODONE 5 MG TAB PO ×2 (01:44→11:02)
[2019-08-28] MEDS: Naproxen 500 MG TAB PO (04:05)
[2019-08-28 04:55] VITALS: BP 133/78; PULSE 80; RESP 16; TEMP 36.8; O2SAT 98
[2019-08-28 07:00] VITALS: BP 109/70; PULSE 67; RESP 16; TEMP 36.8; O2SAT 93
[2019-08-28] MEDS: Aspirin E.C. 81 MG TABEC PO (07:41)
[2019-08-28] MEDS: Acetaminophen 500 MG TAB 1000 MG PO (07:41)
--- NOTE | 2019-08-28 08:40 | IN_ITS ---
Date of service: 08/28/19 Time of Service: 08:08 PT Notes Visit Reasons: (R) PROXIMAL HUMERUS FX Physical Therapy Inpatient Initial Evaluation Date: 08/28/2019 Referring Doctor: Navid Su M.D. PT Orders: PT CONSULT: s/p ortho surgery. Non weightbearing right upper extremity except for ADLs. Use sling when out of bed. Remove sling when in bed and rest on pillow. Passive range of motion only to the right shoulder. Daily active range of the elbow wrist and fingers. Precautions: Fall. Standard. Activity as tolerated. NWB on R UE. Sling on when out of bed. Patient Profile/Admitting Diagnosis: Pt is a 69-year-old female that had fallen on the ice on 08/20/2019 and reported to the ER where she was diagnosed with a right proximal humeral fracture status post right humeral fracture ORIF on post operative day 1 following surgery on 08/27/2019. 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 She lives at home with her life partner. Notes there are two stairs to enter the home with no railing and they enter through the garage. Equipment Owned/DME: UE sling Subjective: Pt reports that she has not been experiencing any pain. Objective: General Observation: IV line in RUE. mepilex dressing over incision. Mental Status: alert and oriented x4 Pain: 0/10 ROM: Right Upper Extremity: (ALL PASSIVE ROM) Shoulder Flexion 65 degrees. Shoulder abduction 68 degrees. Shoulder extension 15 degrees. Shoulder ER 13 degrees Elbow flexion WFL. Wrist flexion WFL. Opening and closing of hand WFL. Left Upper Extremity: Shoulder Flexion WFL. Shoulder abduction WFL. Elbow flexion WFL. Wrist flexion WFL. Opening and closing of hand WFL. Right Lower Extremity: Hip flexion WFL. Hip abduction WFL. Knee flexion WFL. Ankle dorsiflexion WFL. Ankle plantarflexion WFL. Left Lower Extremity: Hip flexion WFL. Hip abduction WFL. Knee flexion WFL. Ankle dorsiflexion WFL. Ankle plantarflexion WFL. Strength: Right Upper Extremity: Shoulder flexors 5/5. Shoulder abductors 5/5. Elbow flexors 5/5. Elbow extensors 5/5. Defence Intelligence Analyst strong. Left Upper Extremity: Shoulder flexors 5/5. Shoulder abductors 5/5. Elbow flexors 5/5. Elbow extensors 5/5. Defence Intelligence Analyst strong. Sensation: Intact as to pain and pressure on bilateral lower extremities. Bed Mobility/Transfers: Rolling independent but some difficulty due to NWB precautions of RUE Supine to sit independent Sit to supine independent Sit to stand independent; able to push up from bed with LUE only Stand to sit independent Bed to chair independent Chair to bed independent Gait: Pt was able to ambulate 10 feet without an assistive device. Supervision provided by PT and PT student. Balance: Static Sitting: Normal Dynamic Sitting: Normal Static Standing: Normal Dynamic Standing: Normal Special Tests: Mobility Limitations Standardized Measure [facility] AM-PAC 6 clicks Basic Mobility Inpatient Short Form: Raw Score: 24 CMS Score: 0% deficit Informed Consent/Education: Patient instructed in purpose of PT consult and plan of care. Pt was instructed in AROM interventions of the RUE including elbow flexion/extension x10 and wrist flexion x10. Assessment: Pt is a 69-year-old female that had fallen on the ice on 08/20/2019 and reported to the ER where she was diagnosed with a right proximal humeral fracture status post right humeral fracture ORIF on post operative day 1 following surgery on 08/27/2019. Patient presents with clinical signs and symptoms consistent with current/admitting diagnoses that have resulted to mobility limitations, generalized weakness, and impairment of motor control as demonstrated by the following impairment level findings: 1. Decreased strength to R UE shoulder musculature 2. Impaired activity tolerance with R UE 3. Limitation of joint range of motion in R shoulder Impairments are contributing to the following functional limitations: 1. Increased difficulty with bed mobility skills 3. Increase completion time for mobility ADL performance Patient is assessed as a 70238 moderate complexity based on the following: History: Pt presents with impairment level findings and functional limitations as addressed above. Examination: Demonstrable impairment in strength, balance, and range of motion with underlying impairments and functional limitations as documented above Presentation: Evolving Decision Makin moderate complexity Goals: N/A. PT evaluation only. DISCHARGE RECOMMENDATIONS: Discharge to home when medically cleared. Recommend outpatient physical therapy for improved ROM and strength to further improve functional mobility of the RUE. TREATMENT CODE/TIME: 74628 x 27 minutes beginning at 8:08 A.M. THEREX: PROM shoulder abduction in sitting x10 PROM shoulder flexion in sitting x10 PROM shoulder extension in sitting x10 PROM shoulder ER in sitting x10 TREATMENT TME/CODE: 70122 x 27 minutes beginning at 8:08 AM. Thank you very much for this referral. Jermaine Robertson, SPT Doctor of Physical Therapy Student [facility] Supervision provided by Aleisha Groves PT, DPT, CLT [facility] [place], [place]
--- NOTE | 2019-08-28 09:54 | DSE_ITS ---
Date of service: 08/28/19 Time of Service: 09:52 DS: Diagnosis Discharge Diagnosis (1) Tendonitis of long head of biceps brachii of right shoulder: Status: Acute (2) Closed fracture of right proximal humerus: Status: Acute Discharge Plan Disposition Patient Disposition: HOME Condition: Stable Discharge Details Reason For Visit: (R) PROXIMAL HUMERUS FX Admit Date/Time: 08/27/19 07:36 Admit Provider: Navid Su Attending Provider: Navid Su [facility] Hospital Course: Admitted for right shoulder surgery. Postoperative course uneventful. Home Meds and New Rx's Prescriptions: New naproxen 250 mg tablet 250 - 500 mg PO BID PRN (Reason: pain, moderate) Qty: 60 RF: 0 aspirin 81 mg tablet,delayed release (DR/EC) 81 mg PO DAILY 14 Days Qty: 14 RF: 0 ondansetron 4 mg tablet,disintegrating 4 mg PO Q6H PRN (Reason: nausea or vomiting) Qty: 5 RF: 0 oxycodone 5 mg tablet 5 - 10 mg PO Q4H PRN (Reason: moderate to severe pain) Qty: 22 RF: 0 Continued escitalopram oxalate [Lexapro] 10 mg tablet 10 mg PO DAILY Qty: 90 RF: 4 triamcinolone acetonide 0.1 % cream 1 applic TP DAILY PRN (Reason: dermatitis) Qty: 80 RF: 1 simvastatin 20 mg tablet 20 mg PO HS Qty: 90 RF: 4 hydrochlorothiazide 25 mg tablet 25 mg PO DAILY Qty: 90 RF: 4 metoprolol succinate 50 mg tablet extended release 24 hr 50 mg PO DAILY Qty: 90 RF: 4 levothyroxine 100 mcg tablet 100 mcg PO DAILY Qty: 90 RF: 4 varicella-zoster [id number] (PF) 50 mcg/0.5 mL suspension for reconstitution 0.5 ml IM ONCE Qty: 1 RF: 0 multivitamin [Daily Multi-Vitamin] 1 EACH tablet 1 ea PO DAILY RF: 0 One-Per-Day [place]-3 1 EACH capsule,delayed release(DR/EC) 1 cap PO DAILY RF: 0 cholecalciferol (vitamin D3) [Vitamin D3] 2,000 UNIT capsule 2,000 unit PO DAILY RF: 0 Discontinued ibuprofen 800 mg tablet 800 mg PO TID PRN (Reason: pain) Qty: 90 RF: 1 No Action acetaminophen 500 mg Tablet 1,000 mg PO PRN PRNRF: 0 ibuprofen 400 mg Tablet 400 mg PO PRN PRNRF: 0 Discharge Instructions Additional Instructions: Surgery: Right proximal humerus ORIF and biceps tenodesis Activity: You should keep your arm at your side in a neutral position at all times except for physical therapy. Do not try to lift or raise your arm using your own muscles. You should use the sling whenever you are out of the house. You may have to adjust the abduction pillow or remove it for comfort. At home it is best to remove the sling and rest the arm on a pillow at your side or sup port the operative side with your other hand. You may allow the arm to dangle at your side. A physical therapy prescription will be provided separately today. It is important to fully extend and bend her elbow, wrist, and fingers every day to prevent stiffness. Prescriptions: Aspirin 81 mg take 1 daily to prevent a blood clot for 2 weeks Naproxen 250 mg take 1-2 every 12 hours with a meal as needed for moderate pain Oxycodone 5 mg take 1-2 every 4-6 hours as needed for severe pain You may use rezt-qin-[id number] Tylenol (acetaminophen) as needed for mild pain. These pain medications may be taken all at once or in different combinations as needed. Ondansetron (Zofran) 4 mg orally dissolving tablet as needed for nausea or vomiting Also, recommend Colace (docusate) as a stool softener as surgery and pain medicine cause constipation. Dressings: Leave dressing in place until follow-up. Keep clean and dry at all times. Do not shower. Follow-up: 10-[address] Su Please call the office during business hours with any questions or concerns. Let us know right away if you develop any redness, drainage, fevers, chest pain, or trouble breathing. Do not drink alcohol or drive for at least 24 hours after anesthesia. Referrals: Navid Su MD [ [facility] STAFF PHYSICIAN] - Activity:: As above Equipment/Supplies:: Shoulder immobilizer Diet:: As Tolerated Discharge Orders Discharge Orders: Discharge Order (Routine); Ordered 08/28/19 Ordered By: Navid Su DS: Summary Status at Discharge Functional status at discharge: independent ambulation Overall status at discharge: patient is progressing back to baseline Mental Status: mental status grossly normal Speech and Movement: speech and movement normal Mood: congruent mood Affect: normal affect Exam Const General: cooperative and no acute distress Orientation: alert, awake and not confused Limitations: mental status not altered and no language barrier Resp Effort & Inspection: normal respiratory effort, able to speak in complete sentences, no audible wheezes and no grunting General: deferred Skin General skin exam: no rashes or lesions noted Neuro General: alert, awake and oriented x3 Cognition: normal cognition Speech: speech normal Extrem Other: Right shoulder Dressing clean, dry, and intact No erythema or drainage No signs dvt or infection NVI distally with BCR Completely sensory intact axial, median, ulnar, and radial nerves Demonstrates full intact motor wrist and hand All compartments soft Psych Appearance: grossly normal Mental Status: mental status grossly normal Speech and Movement: speech and movement normal Mood: congruent mood Affect: normal affect Attitude: cooperative DS: Data Vitals/I&O Vitals and I&O: Vital Signs Respiratory Effort Non-Labored 08/26/19 08:30 Oxygen Delivery Method Room Air 08/26/19 08:30 Oxygen Flow Rate 0 08/26/19 08:30 Intake & Output 08/26/19 08/26/19 08/27/19 11:59 23:59 11:59 Weight 202 lb [facility] Medical History Carpal tunnel syndrome (Acute) S/p left endoscopic release 2014, right hasn't been treated yet 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) Essential hypertension (Chronic) Generalized anxiety disorder (Chronic) History of postoperative nausea (Acute) Hyperlipemia (Chronic) Hypothyroidism (Chronic) Pre-diabetes (Chronic) Rosacea (Inactive) Surgical History H/O: hysterectomy (Inactive ~1995) Ovaries remain History of carpal tunnel surgery of left wrist (Inactive 02/23/15) History of left mastoidectomy (Inactive ~1984) S/P colonoscopy (Acute 03/26/16) S/P tonsillectomy (Acute ~1955) Status post right hip replacement (Inactive ~2009) Family History Mother , 80 of CHF Depression Heart disease Asthma Breast cancer Lung cancer Type 2 diabetes mellitus Father , at 42 of MVA No problems noted. Sister Depression Hyperlipidemia Sister Depression Essential hypertension Alcohol abuse Brother Essential hypertension Hyperlipidemia Son No problems noted. Daughter Type 2 diabetes mellitus Essential hypertension Maternal Grandfather Prostate cancer Maternal Grandmother Heart disease Hyperlipidemia Hypertension Paternal Grandfather Heart disease Paternal Grandmother No problems noted. Social History Smoking/Tobacco Use Status: Former Tobacco Use Quit Date: 08/05/94 Second Hand Exposure: Yes Alcohol Intake: current Alcohol Intake frequency: holidays/special occasions only Alcohol type: wine Drug use: Never Substance use type: does not use Caregiver/Support person: No Household members: significant other Housing: house Communication Needs: Hard of Hearing and Corrective Lenses Do you need help understanding health information?: Rarely Pets and animals: No Sexually active: Yes Do you think of yourself as: straight/heterosexual Current gender identity: female What is your relationship status?: living with partner How often do you talk on the phone with friends or family?: three or more times per week How often do you get together with friends or relatives?: twice per week How often do you attend denominational or sikhism services?: decline to answer Do you belong to any clubs or organized social groups?: no Panel score (0-1 are the most socially isolated patients): 2 What type of physical activity do you participate in: walking Duration: 15-30 minutes/day Frequency: daily Shandra/Christianity: Druze Special shandra needs: No Seatbelt use: always Drive intox 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
== END 2019-08-28 11:04 | disposition home or self-care (01) | DRG 494 ==
LOC: PDS 07:38 → MS 15:29
PROVIDERS: Admitting Provider Student in an Organized Health Care Education/Training Program; PCP Nurse Practitioner Family; Visit Provider Student in an Organized Health Care Education/Training Program
PROC: 0PSF04Z Reposition Right Humeral Shaft with Internal Fixation Device, Open Approach (ICD-10-PCS; CPT 24420; principal; 2019-08-27 08:30)
PROC: 0PSF04Z Reposition Right Humeral Shaft with Internal Fixation Device, Open Approach (ICD-10-PCS; CPT 23430; 2019-08-27 08:30)
DX: S42.231A 3-part fracture of surgical neck of right humerus, initial encounter for closed fracture (principal); S46.191A Other injury of muscle, fascia and tendon of long head of biceps, right arm, initial encounter; W00.0XXA Fall on same level due to ice and snow, initial encounter; I10 Essential (primary) hypertension
CPT/HCPCS: 23615; 23430; 76942; 97161; NC; 73060; J0690; J1100; J2370; J2405; J2704

== ENCOUNTER 2019-09-08 11:49 | Outpatient (CLI) | payer MEDICARE, OTHER, SELFPAY ==
--- NOTE | 2019-09-08 12:02 | DI.RAD_ITS ---
EXAM: XR SHOULDER RT COMPLETE 2+V INDICATION: Follow up. COMPARISON: XR SHOULDER RT COMPLETE 2+V from 08/20/2019 XR HUMERUS RT from 08/27/2019 TECHNIQUE: 2D digital imaging was performed. FINDINGS: There is again seen a sideplate and screws transfixing the proximal humeral fracture. No change in a lignment of the fracture is noted.
== END 2019-09-08 12:09 ==
PROVIDERS: PCP Nurse Practitioner Family; Referring Provider Nurse Practitioner Family; Visit Provider Student in an Organized Health Care Education/Training Program
DX: S42.231D 3-part fracture of surgical neck of right humerus, subsequent encounter for fracture with routine healing (principal); S42.291D Other displaced fracture of upper end of right humerus, subsequent encounter for fracture with routine healing; S46.191D Other injury of muscle, fascia and tendon of long head of biceps, right arm, subsequent encounter; W00.0XXD Fall on same level due to ice and snow, subsequent encounter; I10 Essential (primary) hypertension
CPT/HCPCS: 73030

== ENCOUNTER 2019-10-13 10:28 | Outpatient (CLI) | payer MEDICARE, OTHER, SELFPAY ==
--- NOTE | 2019-10-13 10:21 | DI.RAD_ITS ---
EXAM: XR SHOULDER RT COMPLETE 2+V CLINICAL HISTORY: Follow up. TECHNIQUE: 2D digital imaging was performed. COMPARISON: XR SHOULDER RT COMPLETE 2+V from 09/08/2019 FINDINGS: BONES: There is again seen a sideplate and screws transfixing the proximal right humeral fracture. T here has been no change in alignment of the orthopedic hardware or fracture components. No bony dest ructive lesion is seen. JOINTS: Degenerative changes are present at the acromioclavicular joint and the glenohumeral joint. SOFT TISSUE: Normal. IMPRESSION: Stable right shoulder. DATA REPOSITORY: RADIATION DOSE DELIVERED:
== END 2019-10-13 10:48 ==
PROVIDERS: PCP Nurse Practitioner Family; Referring Provider Nurse Practitioner Family; Visit Provider Student in an Organized Health Care Education/Training Program
DX: S42.291D Other displaced fracture of upper end of right humerus, subsequent encounter for fracture with routine healing (principal); X58.XXXD Exposure to other specified factors, subsequent encounter; M75.21 Bicipital tendinitis, right shoulder; I10 Essential (primary) hypertension
CPT/HCPCS: 73030

== ENCOUNTER 2019-12-15 09:21 | Outpatient (CLI) | payer MEDICARE, OTHER, SELFPAY ==
--- NOTE | 2019-12-15 09:51 | DI.RAD_ITS ---
EXAM: XR SCAPULA RT CLINICAL HISTORY: fu TECHNIQUE: COMPARISON: No exams were available for comparison FINDINGS: Two views were obtained and show plate and screw fixation of humeral head fracture, no gross interval change in alignment of fracture fragments comparison with previous examination of October 12. IMPRESSION:
== END 2019-12-15 09:41 ==
PROVIDERS: PCP Nurse Practitioner Family; Referring Provider Nurse Practitioner Family; Visit Provider Student in an Organized Health Care Education/Training Program
DX: S42.231D 3-part fracture of surgical neck of right humerus, subsequent encounter for fracture with routine healing (principal); S42.291D Other displaced fracture of upper end of right humerus, subsequent encounter for fracture with routine healing; X58.XXXD Exposure to other specified factors, subsequent encounter; M75.21 Bicipital tendinitis, right shoulder; I10 Essential (primary) hypertension
CPT/HCPCS: 99213; 73010

== ENCOUNTER 2020-03-02 03:30 | Outpatient (CLI) | payer MEDICARE, OTHER, SELFPAY ==
[2020-03-02 13:02] LABS: Hemoglobin A1C 5.9 % (3.8-5.6)
[2020-03-02 13:06] LABS: Anion Gap 7.2 mmol/L (3-11); BUN 10 mg/dL (7-18); CO2 30.8 mmol/L (21.0-32.0); CREATININE 0.67 mg/dL (0.55-1.02); Calcium 9.6 mg/dL (8.5-10.1); Calculated LDL 80 mg/dL (<100); Chloride 104 mmol/L (98-107); Cholesterol 151 mg/dL (<200); Glucose 114 mg/dL (74-106); HDL Cholesterol 43 mg/dL (40-60); Potassium 4.2 mmol/L (3.5-5.1); Sodium 142 mmol/L (136-145); TSH 2.08 uIU/mL (0.36-3.74); Triglyceride 144 mg/dL (<150)
[2020-03-02 13:37] LABS: FREE T4 1.25 ng/dL (0.76-1.46)
== END 2020-03-02 03:50 ==
PROVIDERS: PCP Nurse Practitioner Family; Visit Provider Nurse Practitioner Family
DX: E03.9 Hypothyroidism, unspecified (principal); R73.03 Prediabetes; I10 Essential (primary) hypertension
CPT/HCPCS: 36415; 80048; 80061; 83036; 84439; 84443

== ENCOUNTER → 2020-03-09 09:19 | Outpatient (BNVA) | payer MEDICARE, OTHER, SELFPAY | PROVIDERS: PCP Nurse Practitioner Family; Visit Provider Student in an Organized Health Care Education/Training Program | DX: M25.611 Stiffness of right shoulder, not elsewhere classified; Z47.89 Encounter for other orthopedic aftercare; Z87.81 Personal history of (healed) traumatic fracture | CPT/HCPCS: 99213 ==

== ENCOUNTER 2020-08-16 10:19 | Outpatient (CLI) | payer MEDICARE, OTHER, SELFPAY ==
--- NOTE | 2020-08-16 09:30 | DI.RAD_ITS ---
EXAM: XR SHOULDER RT COMPLETE 2+V INDICATION: F/u. COMPARISON: CR XR SCAPULA RT from 12/15/2019 TECHNIQUE: 2D digital imaging was performed. FINDINGS: Fixation plate is again noted at in the proximal humerus. The fracture has healed. There are degen erative changes of the glenohumeral joint and AC joint. No new abnormalities are seen. DATA REPOSITORY: RADIATION DOSE DELIVERED:
== END 2020-08-16 10:39 ==
PROVIDERS: PCP Nurse Practitioner Family; Referring Provider Nurse Practitioner Family; Visit Provider Student in an Organized Health Care Education/Training Program
DX: S42.291D Other displaced fracture of upper end of right humerus, subsequent encounter for fracture with routine healing; X58.XXXD Exposure to other specified factors, subsequent encounter
CPT/HCPCS: 99213; 73030

== ENCOUNTER 2020-09-08 01:26 | Outpatient (CLI) | payer MEDICARE, OTHER, SELFPAY ==
--- NOTE | 2020-09-08 06:53 | DI.MAMMO_ITS ---
EXAM: MG MAMMO SCREENING CLINICAL HISTORY: screening,Z12.39 TECHNIQUE: Bilateral full field digital CC and MLO mammographic images were obtained with 3D tomosyn thesis and utilizing computer aided detection (CAD). COMPARISON: Available for comparison. FINDINGS: Masses/Architectural Distortion: None seen. Microcalcifications: No suspicious pleomorphic-type are seen. Skin Thickening/Nipple Retraction: None. IMPRESSION: 1. No significant interval change with no specific features of malignancy noted. 2. Unless there is more urgent need, screening mammography is recommended, as per [employer] guidelines. BI-RADS Category 1 - Negative Breast Density - Category B - Scattered areas of fibroglandular density Breast density category C or D implies that the patient has dense breast tissue. Dense breast tissue is very common and is not abnormal but dense breast tissue can make it harder to find cancer on a ma mmogram. Also, dense breast tissue may increase their breast cancer risk. This information about the result of the mammogram report was provided to the patient to raise their awareness. Use this report when you speak with the patient about their risks for breast cancer, which includes their family hist ory. At that time, you may recommend for more screening tests (Ultrasound or MRI) as they might be us eful based on their risk. A negative radiographic report should not delay biopsy if a dominant or clinically suspicious mass is present. Up to ten percent of cancers are not identified on mammography. A negative report may reinforce clinical impression. Adenosis and dense breasts may obscure an underlying neoplasm. False positive reports average 6 to 10%. Patient will receive a letter notifying them of these results.
== END 2020-09-08 01:27 | disposition home or self-care (01) ==
LOC: DI 01:26
PROVIDERS: PCP Nurse Practitioner Family; Visit Provider Nurse Practitioner Family
DX: Z12.31 Encounter for screening mammogram for malignant neoplasm of breast (principal)
CPT/HCPCS: 77063; 77067

== ENCOUNTER → 2020-10-11 13:55 | Outpatient (BNVA) | payer MEDICARE, OTHER, SELFPAY | PROVIDERS: PCP Nurse Practitioner Family; Referring Provider Nurse Practitioner Family; Visit Provider Student in an Organized Health Care Education/Training Program | DX: G56.01 Carpal tunnel syndrome, right upper limb (principal); Z98.890 Other specified postprocedural states; I10 Essential (primary) hypertension | CPT/HCPCS: 99213 ==

== ENCOUNTER → 2020-11-28 14:06 | Outpatient (BNVA) | payer MEDICARE, OTHER, SELFPAY | PROVIDERS: PCP Nurse Practitioner Family; Referring Provider Student in an Organized Health Care Education/Training Program; Visit Provider Nurse Practitioner Adult Health | DX: G56.01 Carpal tunnel syndrome, right upper limb (principal); I10 Essential (primary) hypertension | CPT/HCPCS: 95908; 99203; 99213 ==

== ENCOUNTER → 2020-12-05 13:02 | Outpatient (BNVA) | payer MEDICARE, OTHER, SELFPAY | PROVIDERS: PCP Nurse Practitioner Family; Referring Provider Nurse Practitioner Family; Visit Provider Student in an Organized Health Care Education/Training Program | DX: G56.01 Carpal tunnel syndrome, right upper limb (principal) | CPT/HCPCS: 99213 ==

== ENCOUNTER 2021-01-09 03:59 | Outpatient (CLI) | payer MEDICARE, OTHER, SELFPAY ==
[2021-01-09 11:06] LABS: Source Nasal/Nares
[2021-01-09 15:09] LABS: COVID-19 PCR Negative (Negative)
== END 2021-01-09 04:00 | disposition home or self-care (01) ==
LOC: LBO 03:59
PROVIDERS: PCP Nurse Practitioner Family; Visit Provider Student in an Organized Health Care Education/Training Program
DX: Z20.822 Contact with and (suspected) exposure to COVID-19 (principal); Z01.818 Encounter for other preprocedural examination
CPT/HCPCS: 87635

== ENCOUNTER 2021-01-10 11:00 | Day surgery (SDC) | payer MEDICARE, OTHER, SELFPAY ==
--- NOTE | 2021-01-10 10:31 | PDOC.DSDIS_ITS ---
Discharge Plan Disposition Patient Disposition: HOME Condition: Good Discharge Details Reason For Visit: Left Carpal Tunnel Attending Provider: Rich Vanegas Primary Care Provider: Kalyani Kulkarni Home Meds and New Rx's Prescriptions: New hydrocodone-acetaminophen 5-325 mg tablet 1 tab PO Q6H PRNQty: 5 RF: 0 acetaminophen [Tylenol Extra Strength] 500 mg tablet 500 mg PO Q6H PRNQty: 90 RF: 0 ibuprofen 600 mg tablet 600 mg PO TID Qty: 90 RF: 0 Continued triamcinolone acetonide 0.1 % cream 1 applic TP DAILY PRN (Reason: dermatitis) Qty: 80 RF: 1 vitamin B complex Tablet 1 tab PO DAILY RF: 0 ketoconazole 2 % cream 1 applic topical BID RF: 0 amoxicillin 500 mg capsule 2,000 mg PO ONCE PRN (Reason: Antibiotic prophylaxis for dental procedure) Qty: 20 RF: 0 escitalopram oxalate [Lexapro] 10 mg tablet 10 mg PO DAILY Qty: 90 RF: 4 varicella-zoster [id number] (PF) 50 mcg/0.5 mL suspension for reconstitution 0.5 ml IM ONCE Qty: 1 RF: 0 Ca carbonate-mag oxide-vit C 400 mg calcium -117 mg-167 mg tablet 1 tab PO DAILY RF: 0 multivitamin [Daily Multi-Vitamin] 1 EACH tablet 1 ea PO DAILY RF: 0 simvastatin 20 mg tablet 20 mg PO HS Qty: 90 RF: 4 levothyroxine 100 mcg tablet 100 mcg PO DAILY Qty: 90 RF: 4 hydrochlorothiazide 25 mg tablet 25 mg PO DAILY Qty: 90 RF: 4 metoprolol succinate 50 mg tablet extended release 24 hr 50 mg PO DAILY Qty: 90 RF: 4 ibuprofen 800 mg tablet 800 mg PO BID PRN (Reason: pain) Qty: 60 RF: 0 acetaminophen 500 mg Tablet 1,000 mg PO PRN PRNRF: 0 Discharge Instructions Stand Alone Forms: Romina Downing Tunnel Release Referrals: Rich Vanegas MD [ [facility] STAFF PHYSICIAN] - Activity:: Activity as Tolerated Remove Dressings/Wound Care:: 48 hours Shower/Bathe:: 48 hours Diet:: As Tolerated Discharge Orders Discharge Orders: Discharge Order (Routine); Ordered 01/10/21 Ordered By: Clarissa Rubio DS: Diagnosis Discharge Diagnosis (1) Carpal tunnel syndrome of right wrist: Status: Chronic
[2021-01-10 11:13] VITALS: BP 133/63; PULSE 66; RESP 16; TEMP 36.5; O2SAT 98
--- NOTE | 2021-01-10 11:28 | W.ANESPRE ---
General Info Date of Service Date Performed: 01/10/21 Height: 5 ft 5 in Weight: 96.1 kg Body Mass Index (BMI): 35.2 Surgical Procedure: Operation Date: 01/10/21 12:40 Proposed Procedures Side Surgeon p Wrist ECTR Right Rich Vanegas MD Meds Allergies and Home Medications Allergies Allergy/AdvReac Type Severity Reaction Status Date / Time Sulfa (Sulfonamide Allergy Intermediate corneal Verified 01/10/21 11:08 Antibiotics) infection lisinopril AdvReac Cough Verified 01/10/21 11:08 Home Medication Medication Instructions Recorded multivitamin [Daily Multi-Vitamin] 1 ea PO DAILY 10/21/14 triamcinolone acetonide 0.1 % 1 applic TP DAILY PRN #80 gm 12/04/18 topical cream acetaminophen 1,000 mg PO PRN PRN 08/27/19 calcium carb-magnesium oxide-vit C 1 tab PO DAILY 12/15/19 400 mg calcium-117 mg-167 mg tablet simvastatin 20 mg tablet 20 mg PO HS #90 tab-cap 01/20/20 amoxicillin 500 mg capsule 2,000 mg PO ONCE PRN #20 cap 02/26/20 escitalopram oxalate 10 mg tablet 10 mg PO DAILY #90 tab-cap 02/26/20 varicella-zoster glycoE [id number] 0.5 ml IM ONCE #1 each 02/26/20 adj(PF) 50 mcg/0.5 mL IM susp, kit levothyroxine 100 mcg tablet 100 mcg PO DAILY #90 tab-cap 03/16/20 hydrochlorothiazide 25 mg tablet 25 mg PO DAILY #90 tab-cap 05/02/20 metoprolol succinate 50 mg 50 mg PO DAILY #90 tab 05/02/20 tablet,extended release 24 hr ibuprofen 800 mg tablet 800 mg PO BID PRN #60 tab 11/16/20 vitamin B complex 1 tab PO DAILY 11/28/20 ketoconazole 2 % topical cream 1 applic TOPICAL BID 12/05/20 acetaminophen [Tylenol Extra 500 mg PO Q6H PRN #90 tab 01/10/21 Strength] hydrocodone-acetaminophen 1 tab PO Q6H PRN #5 tab 01/10/21 ibuprofen 600 mg PO TID #90 tab 01/10/21 Current Visit Medications: Current Medications Generic Name Dose Route Start Last Admin Trade Name Freq PRN Reason Stop Dose Admin Acetaminophen 650 mg 01/10/21 10:28 Acetaminophen 325 Mg Tab PO Q4H PRN PRN Hydrocodone Bitart/Acetaminophen 0 tab 01/10/21 10:28 Hydrocodone 5/Acetaminophen 325 Tab PO Q3H PRN PRN Pain Ringer's Solution 1,000 mls @ 80 mls/hr 01/10/21 06:00 IV 02/08/21 23:59 INFUSION JESSE Cefazolin Sodium/Dextrose 2 gm in 50 mls @ 100 mls/hr 01/10/21 06:00 Ancef Duplex IVPB 01/10/21 23:59 PREOP JESSE Ondansetron HCl 4 mg/ Sodium 52 mls @ 200 mls/hr 01/10/21 10:28 Chloride IVPB Q6H PRN PRN IV Miscellaneous Supplies 1 each 01/10/21 06:00 Iv Access IV 02/08/21 23:59 DIRECTED JESSE Sodium Chloride 0 ml 01/10/21 06:00 Normal Saline Flush 10 Ml Syr IV 02/08/21 23:59 PRN PRN Sodium Chloride 0 ml 01/10/21 06:00 Normal Saline 10 Ml Vial IJ 02/08/21 23:59 DIRECTED PRN Sterile Water 0 ml 01/10/21 06:00 Water,Injection,Sterile 10 Ml Vial IJ 02/08/21 23:59 DIRECTED PRN PFSH Active Problems Active Problems: Problem Status Onset Code Carpal tunnel syndrome of right wrist G56.01 Abnormal auditory perception H93.299 Hypothyroidism E03.9 Essential hypertension I10 Pre-diabetes R73.03 Hyperlipemia E78.5 Generalized anxiety disorder F41.1 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 Medical History Medical History Carpal tunnel syndrome S/p left endoscopic release 2014, right hasn't been treated yet Deafness in left ear Essential hypertension Generalized anxiety disorder History of branchial cleft cyst Hyperlipemia Hypothyroidism Pre-diabetes Rosacea 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 Surgical History Surgical History H/O: hysterectomy (~1995) Ovaries remain History of carpal tunnel surgery of left wrist (02/23/15) History of left mastoidectomy (~1984) S/P colonoscopy (03/26/16) S/P ORIF (open reduction internal fixation) fracture (08/27/19) Right proximal humerus S/P tonsillectomy (~1956) Status post Mohs surgery for squamous cell carcinoma of skin (05/19/20) Status post right hip replacement (~2009) Tobacco Smoking/Tobacco Use Status: Former Tobacco Use Passive smoking exposure: Yes Second hand exposure: Yes Alcohol Alcohol Intake: current Alcohol intake frequency: holidays/special occasions only Alcohol type: wine Substance Use Substance use: Never Substance use type: does not use Prental History History 3 Para 2 Hx # Term Pregnancies Multiple births Hx # Pregnancies Ectopic pregnancies AB induced Hx Number of Living Children 2 AB spontaneous 1 Vital Signs and Lab Results Vital Signs Most Recent Vital Signs in EMR: Most Recent Vital Signs Temp Pulse Resp BP Pulse Ox 36.5 C 66 16 133/63 98 01/10/21 11:13 01/10/21 11:13 01/10/21 11:13 01/10/21 11:13 01/10/21 11:13 Lab Results Blood Type / Crossmatch: No Data to Display Complete Blood Count: No Data to Display Complete Metabolic Panel: No Data to Display Liver Function Panel: No Data to Display Coagulation Panel: No Data to Display Cardiac Panel: No Data to Display Arterial Blood Gas: No Data to Display Venous Blood Gas: No Data to Display Pancreas Panel: No Data to Display Thyroid Panel: No Data to Display Infectious Disease: Coronavirus (COVID-19)(PCR) Negative (Negative) 01/09/21 08:56 01/09/21 Coronavirus 2019 Source Nasal/nares 01/09/21 08:56 01/09/21 Blood Cultures: No Data to Display Toxicology Panel: No Data to Display Anesthesia Assessment and Plan Anesthesia History Personal History: No History of Anesthesia Complications Family History: No Family History of Anesthesia Complications Exercise Tolerance Exercise Tolerance: Metabolic Equivalents>4 Pertinent Negatives Pertinent Negatives: No Symptoms of GERD, No Major Cardiovascular Symptoms or Complaints, No Major Pulmonary Symptoms or Complaints and No History of CVA/TIA Cardiac & Pulmonary Exam Cardiac Exam: Normal S1/S2 Heart Sounds Pulmonary Exam: Clear Bilateral Breath Sounds Airway Exam Known Difficult Airway: No Mallampati Class: 3 Mouth Opening: Normal (> 3cm) Thyromental Distance: Greater than 3 cm Neck Range of Motion: Full ROM Neck Circumference: Normal Teeth Condition: Normal Dentition ASA Classification ASA Score: ASA 2 Emergency Case?: No NPO Status NPO Status: NPO Clears >2 hours, Solids >8 hours Anesthesia Plan Resuscitation Status: Full Code Anesthesia Technique: General Anesthesia Airway Planned: Natural Airway Monitors Used: Standard Monitors
[2021-01-10] MEDS: Lactated Ringers 1,000 ML 80 ML IV (11:35)
[2021-01-10 11:47] VITALS: BMI 35.2
[2021-01-10] MEDS: ceFAZolin 2 GM/50 ML BAG IVPB (12:01)
[2021-01-10] MEDS: Sodium Bicarbonate 50 MEQ/50 ML VIAL (12:07)
[2021-01-10 12:19] VITALS: BP 122/46; PULSE 60; RESP 16; TEMP 36.5; O2SAT 94
--- NOTE | 2021-01-10 12:21 | W.ANESPOSTOP ---
Postoperative Evaluation Date, Time and Location Date Performed: 01/10/21 Time Performed: 12:33 Patient Location: Day Surgery Unit Vital Signs Most Recent Imported Vital Signs: Most Recent Vital Signs Temp Pulse Resp BP Pulse Ox 36.5 C 66 16 133/63 98 01/10/21 11:13 01/10/21 11:13 01/10/21 11:13 01/10/21 11:13 01/10/21 11:13 Most Recent Manually Entered Vital Signs: Adult Blood Pressure: 104/41 Heart Rate: 59 Respirations: 16 Oxygen Saturation (%): 94 Temperature (C): 36.4 C Pain Score (0-10 Scale): 0 Pain Score Most Recent Pain Score: 0 Assessment Mental Status: Awake (Alert & Oriented to Patient Baseline) Airway and Respiratory Function: Patent airway with normal (patient baseline) respiratory exam Cardiovascular Function: Hemodynamically Stable Hydration Status: Adequately Hydrated Nausea & Vomiting: No Nausea or Vomiting Pain: Pt. Denies Any Pain Peripheral Nerve Block: Patient did not receive a nerve block
[2021-01-10 12:43] VITALS: BP 104/41; PULSE 59; RESP 16; TEMP 36.4; O2SAT 95
[2021-01-10 12:53] VITALS: BP 104/41; PULSE 59; RESP 16; TEMPC 36.4; O2SAT 94
--- NOTE | 2021-01-10 22:54 | W.PM.OP ---
Date of service: 01/10/21 Time of Service: 12:23 Operative Note Operative Note DATE OF PROCEDURE: 01/10/21 PRE-OP DIAGNOSIS: Right Carpal Tunnel Syndrome POST-OP DIAGNOSIS: same PROCEDURE: Right Endoscopic Carpal Tunnel Release SURGEON: Rich Vanegas ANESTHESIA TYPE: General:No Airway Refer to Anesthesia Record ESTIMATED BLOOD LOSS: 0 PATHOLOGY: none sent TOURNIQUET TIME: 6 COMPLICATIONS: None Patient was transported to: same day Patient's condition: stable Indications: I have seen Rosemary in clinic for symptoms of carpal tunnel syndrome. The numbness, tingling, and pain limited function. Clinical exam findings [with nerve conduction tests ]confirmed the diagnosis of carpal tunnel syndrome. Nonoperative measures such as bracing, time, activity modifications had been tried but disability and pain persisted. I discussed carpal tunnel release with the patient. I reviewed the risks of the procedure to include, but not limited to, bleeding, infection, pain, stiffness, incomplete release, damage to nerves or vessels, persistent numbness, recurrence. Despite these risks, the patient elected to proceed. Findings: There was tightened carpal tunnel. This was dilated and released successfully with the endoscopic with increased space within the tunnel. The antebrachial fascia was released proximally freeing the median nerve at the wrist. Procedure Description: Rosemary was greeted in the preoperative holding area where the correct side was identified and marked. The consent was reviewed with the patient and signed. The history and physical was updated. All questions were answered. She was taken back to the operating room. The patient was placed into the supine position on the operating room table with the right arm on an arm board. A nonsterile tourniquet was placed high onto the arm. All bony prominences were well padded. Prophylactic antibiotics in the form of Cefazolin were administered. The right arm was then prepped with Chloraprep and draped in a standard fashion with stockinette and extremity drape. A timeout to confirm correct identity, side and site, procedure, allergies, anesthesia, and medical concerns was performed. The surgical site was marked in the volar wrist creases in line with the radial border of the fourth ray. This area was anesthetized with approximately 6cc of 1% Lidocaine. The limb was then exsanguinated with an Esmarch. The skin was incised with a 15 blade, approximately 1cm. The skin only was cut and the deeper tissue was dissected bluntly with a tenotomy scissor, avoiding passing nerve and venous structures. The fascia was penetrated and opened bluntly. A two-prong skin hook was placed under this proximal fascial edge. A series of hamate finders were used to identify and dilate the carpal tunnel. Synovial elevator was used to free synovial attachments to the underside of the transverse carpal ligament. My thumb was kept in the palm to renaldo the distal extent of the carpal tunnel and correctly position the hand. The Microaire endoscope was inserted without difficulty and without resistance. Excellent visualization showed horizontally running fibers of the transverse carpal ligament (TCL). The distal extent of the TCL was visualized and the end of the scope palpated with the thumb. The blade was elevated and withdrawn from distal to proximal. The TCL was split into two flaps. The endoscope was reinserted to confirm complete release and any remnant ligament was incised. The scope was withdrawn and the proximal aspect of the carpal tunnel was grossly inspected and appeared release with the median nerve visible. The antebrachial fascia at the level of the wrist was then freed from the overlying skin and then the underlying median nerve with blunt dissection. This was transected longitudinally for about 3cm proximal to the wrist incision. The wound was then irrigated with easy flow of irrigant distally and proximally. The incision was closed with a single 4-0 Nylon suture. The wound was dressed with Xeroform, Gauze, Kerlix and Sky. The tourniquet was deflated with the initial dressing and held with some pressure. Blood flow returned easily to all digits with capillary refill less than 2 seconds. The patient tolerated the procedure well and was returned to the Same Day Surgery area in a stable condition suffering no known complication.
== END 2021-01-10 13:10 | disposition home or self-care (01) ==
LOC: SUR 11:00
PROVIDERS: PCP Nurse Practitioner Family; Visit Provider Student in an Organized Health Care Education/Training Program
PROC: 01N54ZZ Release Median Nerve, Percutaneous Endoscopic Approach (ICD-10-PCS; CPT 29848; principal; 2021-01-10 12:30)
DX: G56.01 Carpal tunnel syndrome, right upper limb (principal); I10 Essential (primary) hypertension; R73.03 Prediabetes; E78.5 Hyperlipidemia, unspecified
CPT/HCPCS: 29848; J0690; J1885; J2001; J2704

== ENCOUNTER → 2021-01-20 09:00 | Outpatient (BNVA) | payer MEDICARE, OTHER, SELFPAY | PROVIDERS: PCP Nurse Practitioner Family; Referring Provider Nurse Practitioner Family; Visit Provider Physician Assistant Surgical | DX: Z47.89 Encounter for other orthopedic aftercare (principal) ==

== ENCOUNTER 2021-02-28 03:25 | Outpatient (CLI) | payer MEDICARE, OTHER, SELFPAY ==
[2021-02-28 12:39] LABS: Hemoglobin A1C 6.1 % (<5.7)
[2021-02-28 12:47] LABS: Anion Gap 8.1 mmol/L (3-11); BUN 15 mg/dL (7-18); CO2 30.9 mmol/L (21.0-32.0); CREATININE 0.7 mg/dL (0.55-1.02); Calcium 9.6 mg/dL (8.5-10.1); Calculated LDL 81 mg/dL (<100); Chloride 105 mmol/L (98-107); Cholesterol 150 mg/dL (<200); Glucose 124 mg/dL (74-106); HDL Cholesterol 45 mg/dL (40-60); Potassium 4.2 mmol/L (3.5-5.1); Sodium 144 mmol/L (136-145); Triglyceride 121 mg/dL (<150)
[2021-02-28 13:09] LABS: FREE T4 0.92 ng/dL (0.76-1.46)
== END 2021-02-28 03:26 | disposition home or self-care (01) ==
LOC: LOS 03:25
PROVIDERS: PCP Nurse Practitioner Family; Visit Provider Nurse Practitioner Family
DX: E03.9 Hypothyroidism, unspecified (principal); E78.5 Hyperlipidemia, unspecified; I10 Essential (primary) hypertension; R73.03 Prediabetes
CPT/HCPCS: 36415; 80048; 80061; 83036; 84439; 84443

== ENCOUNTER 2021-10-27 02:19 | Outpatient (CLI) | payer MEDICARE, OTHER, SELFPAY ==
--- NOTE | 2021-10-27 11:30 | DI.MAMMO_ITS ---
Exam(s) MAMMO SCREENING EXAM: MAMMO SCREENING CLINICAL HISTORY: screening,z12.39 TECHNIQUE: Bilateral full field digital CC and MLO mammographic images were obtained with 3D tomosyn thesis and utilizing computer aided detection (CAD). COMPARISON: Available for comparison. FINDINGS: Masses/Architectural Distortion: None seen. Microcalcifications: No suspicious pleomorphic-type are seen. Skin Thickening/Nipple Retraction: None. IMPRESSION: 1. No significant interval change with no specific features of malignancy noted. 2. Unless there is more urgent need, screening mammography is recommended, as per [employer] [employer] guidelines. BI-RADS Category 1 - Negative Breast Density - Category B - Scattered areas of fibroglandular density Breast density category C or D implies that the patient has dense breast tissue. Dense breast tissue is very common and is not abnormal but dense breast tissue can make it harder to find cancer on a ma mmogram. Also, dense breast tissue may increase their breast cancer risk. This information about the result of the mammogram report was provided to the patient to raise their awareness. Use this report when you speak with the patient about their risks for breast cancer, which includes their family hist ory. At that time, you may recommend for more screening tests (Ultrasound or MRI) as they might be us eful based on their risk. A negative radiographic report should not delay biopsy if a dominant or clinically suspicious mass is present. Up to ten percent of cancers are not identified on mammography. A negative report may reinforce clinical impression. Adenosis and dense breasts may obscure an underlying neoplasm. False positive reports average 6 to 10%. Patient will receive a letter notifying them of these results.
== END 2021-10-27 02:39 ==
PROVIDERS: PCP Nurse Practitioner Family; Visit Provider Nurse Practitioner Family
DX: Z12.31 Encounter for screening mammogram for malignant neoplasm of breast (principal)
CPT/HCPCS: 77063; 77067

== ENCOUNTER 2022-03-13 03:39 | Outpatient (CLI) | payer MEDICARE, OTHER, SELFPAY ==
[2022-03-13 13:03] LABS: Anion Gap 6.1 mmol/L (3-11); BUN 11 mg/dL (7-18); CO2 30.9 mmol/L (21.0-32.0); CREATININE 0.6 mg/dL (0.55-1.02); Calculated LDL 84 mg/dL (<100); Chloride 104 mmol/L (98-107); Cholesterol 149 mg/dL (<200); Glucose 117 mg/dL (74-106); HDL Cholesterol 44 mg/dL (40-60); Sodium 141 mmol/L (136-145); Triglyceride 107 mg/dL (<150)
== END 2022-03-13 03:40 | disposition home or self-care (01) ==
LOC: LOS 03:39
PROVIDERS: PCP Nurse Practitioner; Visit Provider Nurse Practitioner
DX: I10 Essential (primary) hypertension (principal); E03.9 Hypothyroidism, unspecified; R73.03 Prediabetes
CPT/HCPCS: 36415; 80048; 80061; 83036; 84443

== ENCOUNTER 2022-08-27 01:53 | Outpatient (CLI) | payer MEDICARE, OTHER, SELFPAY ==
--- NOTE | 2022-08-27 06:30 | DI.US_ITS ---
Exam(s) US SOFT TISSUE HEAD OR NECK EXAM: US SOFT TISSUE HEAD OR NECK CLINICAL HISTORY: soft tissue abcess,l02.91. TECHNIQUE: Ultrasound was performed using standard protocol. COMPARISON: No exams were available for comparison FINDINGS: Sonographic assessment utilizing grayscale and color Doppler imaging was performed and targeted to th e area of clinical concern. There is a trace amount of fluid directly beneath the skin in the area of the skin lesion. It measur es 12 millimeters transverse by 1 millimeter in depth. IMPRESSION: Minimal subcutaneous fluid. No drainable abscess. DATA REPOSITORY:
== END 2022-08-27 02:13 ==
LOC: DI 01:53
PROVIDERS: PCP Nurse Practitioner Family; Visit Provider Nurse Practitioner Family
DX: L02.91 Cutaneous abscess, unspecified (principal)
CPT/HCPCS: 76536

== ENCOUNTER 2022-08-27 02:59 | Outpatient (CLI) | payer MEDICARE, OTHER, SELFPAY ==
[2022-08-27 07:49] LABS: ESR 9 mm/hr (0-30)
[2022-08-27 07:50] LABS: Abs Immature Grans 0.02 10^3/uL (0.0-0.06); Absolute Basophil Count 0.04 10^3/uL (0.0-0.2); Absolute Eosinophil Count 0.23 10^3/uL (0.0-0.7); Absolute Lymphocyte Count 1.21 10^3/uL (1.2-3.4); Absolute Monocyte Count 0.56 10^3/uL (0.1-0.8); Absolute Neutrophil Count 4.46 10^3/uL (1.2-6.7); Basophils % 0.6; Eosinophils % 3.5; HCT 44.7 % (36.0-46.0); HGB 15.2 g/dL (11.2-15.7); Immature Grans % 0.3; Lymphocytes % 18.6; MCH 33.6 pg (27.0-33.0); MCV 99 fL (80-95); MPV 9.7 fL (8.0-11.0); Monocytes % 8.6; Neutrophils % 68.4; Platelet Count 237 10^3/uL (130-400); RBC 4.52 10^6/uL (3.93-5.22); RDW 13.4 % (11.7-14.6); RDW-SD 48.9 fL; WBC 6.52 10^3/uL (4.4-10.8)
[2022-08-27 09:58] LABS: ALT 30 U/L (14-59); AST 22 U/L (15-37); Albumin 4.1 g/dL (3.4-5.0); Alkaline Phosphatase 80 U/L (46-116); Anion Gap 6.3 mmol/L (3-11); BUN 13 mg/dL (7-18); Bilirubin, Total 0.4 mg/dL (0.2-1.0); CO2 31.7 mmol/L (21.0-32.0); CREATININE 0.8 mg/dL (0.55-1.02); Calcium 9.5 mg/dL (8.5-10.1); Chloride 103 mmol/L (98-107); Estimated GFR 77.75 (mL/min/1.73m2); Glucose 130 mg/dL (74-106); Potassium 3.8 mmol/L (3.5-5.1); Sodium 141 mmol/L (136-145); Total Protein 7.5 g/dL (6.4-8.2)
[2022-08-27 17:12] LABS: CRP, High Sensitivity 2.99 mg/L (See Note)
== END 2022-08-27 03:00 | disposition home or self-care (01) ==
LOC: LBO 02:59
PROVIDERS: PCP Nurse Practitioner Family; Visit Provider Nurse Practitioner Family
DX: L02.11 Cutaneous abscess of neck; L98.8 Other specified disorders of the skin and subcutaneous tissue; Z80.7 Family history of other malignant neoplasms of lymphoid, hematopoietic and related tissues; R22.1 Localized swelling, mass and lump, neck; L30.8 Other specified dermatitis; E07.89 Other specified disorders of thyroid; I10 Essential (primary) hypertension; R73.03 Prediabetes
CPT/HCPCS: 36415; 76536; 80053; 85652; 86141; 85025

== ENCOUNTER 2022-10-31 01:36 | Outpatient (CLI) | payer MEDICARE, OTHER, SELFPAY ==
--- NOTE | 2022-10-31 06:45 | DI.MAMMO_ITS ---
Exam(s) MAMMO SCREENING EXAM: MAMMO SCREENING CLINICAL HISTORY: screening,z12.39 TECHNIQUE: Bilateral full field digital CC and MLO mammographic images were obtained with 3D tomosyn thesis and utilizing computer aided detection (CAD). COMPARISON: Available for comparison. FINDINGS: Masses/Architectural Distortion: None seen. Microcalcifications: No suspicious pleomorphic-type are seen. Stable scattered calcifications in both breasts. Skin Thickening/Nipple Retraction: None. IMPRESSION: 1. No significant interval change with no specific features of malignancy noted. 2. Unless there is more urgent need, screening mammography is recommended, as per [employer] guidelines. BI-RADS Category 2 - Benign Findings Breast Density - Category B - Scattered areas of fibroglandular density Breast density category C or D implies that the patient has dense breast tissue. Dense breast tissue is very common and is not abnormal but dense breast tissue can make it harder to find cancer on a ma mmogram. Also, dense breast tissue may increase their breast cancer risk. This information about the result of the mammogram report was provided to the patient to raise their awareness. Use this report when you speak with the patient about their risks for breast cancer, which includes their family hist ory. At that time, you may recommend for more screening tests (Ultrasound or MRI) as they might be us eful based on their risk. A negative radiographic report should not delay biopsy if a dominant or clinically suspicious mass is present. Up to ten percent of cancers are not identified on mammography. A negative report may reinforce clinical impression. Adenosis and dense breasts may obscure an underlying neoplasm. False positive reports average 6 to 10%. Patient will receive a letter notifying them of these results.
== END 2022-10-31 01:56 ==
LOC: DI 01:36
PROVIDERS: PCP Nurse Practitioner Family; Visit Provider Nurse Practitioner Family
DX: Z12.31 Encounter for screening mammogram for malignant neoplasm of breast (principal)
CPT/HCPCS: 77063; 77067

== ENCOUNTER 2023-01-05 16:13 | Emergency (ER) | payer MEDICARE, OTHER, SELFPAY ==
[2023-01-05 16:18] VITALS: BP 143/64; PULSE 65; RESP 18; TEMP 36.7; O2SAT 95
--- NOTE | 2023-01-05 16:45 | DI.RAD_ITS ---
Exam(s) XR HAND LT COMPLETE EXAM: XR HAND LT COMPLETE CLINICAL HISTORY: fall injury to 3rd metacarpal. TECHNIQUE: 2D digital imaging was performed of the left hand. Three views were obtained. AP, later al and oblique views were obtained. COMPARISON: No exams were available for comparison FINDINGS: BONES: No acute fracture is present. No bony destructive lesion is seen. JOINTS: No dislocation present. Degenerative changes are present in the hand and wrist characterized by joint space narrowing and periarticular spurring. SOFT TISSUE: Normal. IMPRESSION: No acute fracture or dislocation. DATA REPOSITORY: RADIATION DOSE DELIVERED:
--- NOTE | 2023-01-05 16:45 | DI.CT_ITS ---
Exam(s) CT HEAD WO EXAM: CT HEAD WO CLINICAL HISTORY: trauma/fall/ blunt forehead injury. TECHNIQUE: Imaging Protocol: Axial computed tomography images with coronal and sagittal reformatted images were created and reviewed COMPARISON: No exams were available for comparison FINDINGS: Ventricles and Extra axial spaces: Normal in size and morphology for the patient's age. Hemorrhage: None. Cerebral parenchyma: No acute territorial infarct. Subtle areas of decreased attenuation are seen in the white matter likely reflecting chronic microvascular ischemic disease. Midline shift: None. Brainstem/Cerebellum: Normal. Calvarium: Normal. Visualized Paranasal sinuses/Mastoids: Clear. Soft Tissues: There is soft tissue swelling overlying the frontal bones. IMPRESSION: 1. No acute intracranial process. 2. Midline frontal scalp swelling. RADIATION DOSE DELIVERED: 718.77mGy.cm Total DLP DATA REPOSITORY: All CT scans at this facility are submitted to the National Radiology Data Registry (NRDR) Dose Index Registry (DIR) with the [employer] (A[employer]). RADIATION OPTIMIZATION: All CT scans at this facility use at least one of these dose optimization te chniques: automated exposure control; mA and/or kV adjustment per patient size (includes targeted exa ms where dose is matched to clinical indication); or iterative reconstruction.
--- NOTE | 2023-01-05 17:29 | DI.VRAD_ITS ---
PROCEDURE INFORMATION: Exam: XR Left Hand Exam date and time: 01/05/2023 5:21 PM Age: 72 years old Clinical indication: Injury or trauma; Blunt trauma (contusions or hematomas); Hand; Left; Patient HX: Fall injury to 3rd metacarpal TECHNIQUE: Imaging protocol: Radiologic exam of the left hand. Views: 3 or more views. COMPARISON: No relevant prior studies available. FINDINGS: Bones/joints: The bones are demineralized. Chronic degenerative changes. No acute fracture or subluxation. Soft tissues: Unremarkable. IMPRESSION: No acute bony pathology. Dictated and Authenticated by: Mayelin Chavez MD. Ordering:SANJUANITA Rock MD
--- NOTE | 2023-01-05 17:30 | DI.VRAD_ITS ---
PROCEDURE INFORMATION: Exam: CT Head Without Contrast Exam date and time: 01/05/2023 5:11 PM Age: 72 years old Clinical indication: Injury or trauma; Blunt trauma (contusions or hematomas); Patient HX: Trauma/fall/blunt forehead injury TECHNIQUE: Imaging protocol: Computed tomography of the head without contrast. COMPARISON: US SOFT TISSUE HEAD OR NECK 08/27/2022 7:14 AM FINDINGS: Brain: Atrophy and chronic appearing white matter changes. No edema or hemorrhage. Cerebral ventricles: No ventriculomegaly. Paranasal sinuses: No acute sinusitis. Mastoid air cells: No mastoid effusion. Bones/joints: No acute fracture. Soft tissues: Midline frontal scalp swelling/laceration. IMPRESSION: 1. No acute intracranial findings. 2. Midline frontal scalp swelling/laceration. Dictated and Authenticated by: Mayelin Chavez MD. Ordering:SANJUANITA Rock MD
--- NOTE | 2023-01-05 17:53 | ED.GENADUL_ITS ---
Discharge Plan Disposition Patient Disposition: Home Discharge Details Clinical Impression: Head injury, acute, Contusion of hand, left, Laceration of forehead Primary Care Provider: Heidy Edwards ED Provider: Pranav Reis Home Meds and New Rx's Prescriptions: No Action vitamin B complex Tablet 1 tab PO DAILY ketoconazole 2 % cream 1 applic topical BID amoxicillin 500 mg capsule 2,000 mg PO ONCE PRN (Reason: Antibiotic prophylaxis for dental procedure) Qty: 20 0RF Rx Instructions: Take 4 tablets 60min before dental procedure multivitamin [Daily Multi-Vitamin] 1 EACH tablet 1 ea PO DAILY escitalopram oxalate [Lexapro] 10 mg tablet 10 mg PO DAILY Qty: 90 3RF hydrochlorothiazide 25 mg tablet 25 mg PO DAILY Qty: 90 3RF levothyroxine 100 mcg tablet 100 mcg PO DAILY Qty: 90 3RF metoprolol succinate 50 mg tablet extended release 24 hr 50 mg PO DAILY Qty: 90 3RF simvastatin 20 mg tablet 20 mg PO HS Qty: 90 3RF triamcinolone acetonide 0.1 % cream 1 applic TP DAILY PRN (Reason: dermatitis) Qty: 80 1RF acetaminophen 500 mg Tablet 1,000 mg PO PRN PRN Discharge Instructions Instructions: Head Injury (ED), Contusion in Adults (ED), Skin Adhesive Care (ED) Additional Instructions: You may take [id number] acetaminophen as needed for pain and discomfort. Please continue to monitor symptoms and return to the emergency department immediately for any new or significant worsening symptoms otherwise follow-up with your primary care provider as needed. Please do not apply any Vaseline products or antibiotic ointment to the glue as this will prematurely remove it. Referrals: Heidy Edwards NP [Primary Care Provider] - (As needed for reassessment) Discharge Data Discharge Date/Time-TO BE ENTERED AT DEPARTURE: 01/05/23 18:17 Medical Decision Making Patient presenting to the emergency department for chief complaint of mechanical fall with head injury and left hand injury. She states she was walking through her basement and tripped striking her head against the concrete floor and injuring her hand on a unknown object. Patient denies any loss of consciousness, nausea vomiting, focal neurological findings. Physical exam shows a 2 cm laceration that is superficial to the forehead which was cleansed appropriately by nursing staff and repaired with skin adhesive. Patient reports that she is up-to-date on her tetanus. Exam also shows a area of swelling ecchymosis and tenderness to the distal dorsal hand mainly over the third metacarpal. Given mechanism of injury and patient's age will perform CT imaging of head and also plain film imaging of left hand. Patient denies any need for pain medication pending results. Review of radiological imaging shows no acute findings on patient's hand and only soft tissue findings on head CT. Patient reassessed and continues to deny any worrisome symptoms so will discharge patient to continue to monitor symptoms at home and return for any new or worsening of condition. After discussion of diagnosis and plan of care patient has no further needs, questions, or concerns and states clear understanding to return to the emergency department for any worsening symptoms. This documentation was generated using [employer] system, please disregard any oddities of phrase or misspellings. Imaging Data Radiologic Study: Attestation: I personally reviewed and interpreted this imaging study as follows: Imaging: X-Ray Radiologist's impression: Exam(s) PROCEDURE INFORMATION: Exam: XR Left Hand Exam date and time: 01/05/2023 5:21 PM Age: 72 years old Clinical indication: Injury or trauma; Blunt trauma (contusions or hematomas); Hand; Left; Patient HX: Fall injury to 3rd metacarpal TECHNIQUE: Imaging protocol: Radiologic exam of the left hand. Views: 3 or more views. COMPARISON: No relevant prior studies available. FINDINGS: Bones/joints: The bones are demineralized. Chronic degenerative changes. No acute fracture or subluxation. Soft tissues: Unremarkable. IMPRESSION: No acute bony pathology. Radiologic Study #2: Imaging: CT Scan Radiologist's impression: Exam(s) PROCEDURE INFORMATION: Exam: CT Head Without Contrast Exam date and time: 01/05/2023 5:11 PM Age: 72 years old Clinical indication: Injury or trauma; Blunt trauma (contusions or hematomas); Patient HX: Trauma/fall/blunt forehead injury TECHNIQUE: Imaging protocol: Computed tomography of the head without contrast. COMPARISON: US SOFT TISSUE HEAD OR NECK 08/27/2022 7:14 AM FINDINGS: Brain: Atrophy and chronic appearing white matter changes. No edema or hemorrhage. Cerebral ventricles: No ventriculomegaly. Paranasal sinuses: No acute sinusitis. Mastoid air cells: No mastoid effusion. Bones/joints: No acute fracture. Soft tissues: Midline frontal scalp swelling/laceration. IMPRESSION: 1. No acute intracranial findings. 2. Midline frontal scalp swelling/laceration. HPI General Mode of arrival: ambulatory . Date/Time Provider Initiated Documentation: 01/05/23 16:14 . Limitations to Documentation: no limitations . Information obtained by: patient and RN notes reviewed . History of Present Illness 72 year old F presents to the emergency department with the chief complaint of Fall with forehead laceration and left hand injury, described as moderate, Quality is described as aching, and is localized to the left and upper extremity. Patient started experiencing this hour(s) (1) and it has been constant. No relieving factors improve symptom(s), No exacerbating factors reported . Patient notes no other symptoms.. Patient did receive the following treatments prior to arrival, none Related Data Home Medications Medication Instructions Recorded Confirmed multivitamin (Daily Multi-Vitamin 1 ea PO DAILY 10/21/14 08/22/22 tablet) acetaminophen 500 mg tablet 1,000 mg PO PRN PRN 08/27/19 08/22/22 vitamin B complex 1 tab PO DAILY 11/28/20 08/22/22 ketoconazole 2 % topical cream 1 applic topical BID 12/05/20 08/22/22 escitalopram oxalate 10 mg tablet 10 mg PO DAILY #90 tab-caps 03/12/22 08/22/22 (Lexapro) hydrochlorothiazide 25 mg tablet 25 mg PO DAILY #90 tab-caps 03/12/22 08/22/22 levothyroxine 100 mcg tablet 100 mcg PO DAILY #90 tab-caps 03/12/22 08/22/22 metoprolol succinate 50 mg 50 mg PO DAILY #90 tabs 03/12/22 08/22/22 tablet,extended release 24 hr simvastatin 20 mg tablet 20 mg PO HS #90 tab-caps 03/12/22 08/22/22 triamcinolone acetonide 0.1 % 1 applic topical DAILY PRN 03/12/22 08/22/22 topical cream dermatitis #80 grams amoxicillin 500 mg capsule 2,000 mg PO ONCE PRN Antibiotic 03/30/22 08/22/22 prophylaxis for dental procedure #20 caps Previous Rx's Medication Instructions Recorded escitalopram oxalate 10 mg tablet 10 mg PO DAILY #90 tab-caps 03/12/22 (Lexapro) hydrochlorothiazide 25 mg tablet 25 mg PO DAILY #90 tab-caps 03/12/22 levothyroxine 100 mcg tablet 100 mcg PO DAILY #90 tab-caps 03/12/22 metoprolol succinate 50 mg 50 mg PO DAILY #90 tabs 03/12/22 tablet,extended release 24 hr simvastatin 20 mg tablet 20 mg PO HS #90 tab-caps 03/12/22 triamcinolone acetonide 0.1 % 1 applic topical DAILY PRN 03/12/22 topical cream dermatitis #80 grams amoxicillin 500 mg capsule 2,000 mg PO ONCE PRN Antibiotic 03/30/22 prophylaxis for dental procedure #20 caps Allergies Allergy/AdvReac Type Severity Reaction Status Date / Time Sulfa (Sulfonamide Allergy Intermediate corneal Verified 01/08/23 16:05 Antibiotics) infection adhesive tape Allergy Mild Rash, Cut Verified 01/08/23 16:05 murphy lisinopril AdvReac Cough Verified 01/08/23 16:05 General Stated Complaint: HeadInjury YINA: 3 Review of Systems Constitutional Constitutional: Denies daytime sleepiness, Denies frequent falls and Denies headache(s) Eyes Eyes: Denies change in vision ENT Ears, Nose, Mouth, and Throat: Denies vertigo, Denies dizziness, Denies ear discharge, Denies headache(s), Denies epistaxis and Denies neck pain Cardiovascular Cardiovascular: Denies chest pain, Denies syncope and Denies dyspnea Respiratory Respiratory: Denies dyspnea Gastrointestinal Gastrointestinal: Denies nausea and Denies vomiting Musculoskeletal Musculoskeletal: Reports as per HPI, Denies back pain, Reports arthralgias, Reports joint swelling and Denies neck pain Neurologic Neurologic: Denies confusion, Denies vertigo, Denies dizziness, Denies syncope, Denies frequent falls and Denies headache(s) Psychiatric Psychiatric: Denies confusion PFSH All Active Problems (Updated 01/05/23 @ 18:04 by Pranav Reis, JESENIA) Head injury, acute (Acute) Contusion of hand, left (Acute) Laceration of forehead (Acute) Soft tissue abscess (Acute) right side of neck going on for 3 weeks now. 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 Surgical History H/O: hysterectomy (~1995) Ovaries remain History of carpal tunnel surgery of left wrist (02/23/15) History of carpal tunnel surgery of right wrist (01/10/21) History of left mastoidectomy (~1984) S/P colonoscopy (03/26/16) S/P ORIF (open reduction internal fixation) fracture (08/27/19) Right proximal humerus S/P tonsillectomy (~1955) Status post Mohs surgery for squamous cell carcinoma of skin (05/19/20) Status post right hip replacement (~2009) Family History Mother , 80 of CHF Depression Heart disease Asthma Breast cancer Lung cancer Type 2 diabetes mellitus Father , at 42 of MVA Alcohol abuse Sister Depression Hyperlipidemia Alcohol abuse Sister Depression Essential hypertension Alcohol abuse Heart disease Stroke Brother Essential hypertension Hyperlipidemia Son No problems noted. Daughter Type 2 diabetes mellitus Essential hypertension Hyperlipidemia Maternal Grandfather Prostate cancer Maternal Grandmother Heart disease Hyperlipidemia Hypertension Paternal Grandfather Heart disease Paternal Grandmother No problems noted. Social History Smoking/Tobacco Use Status: Former Tobacco Use tobacco type: cigarettes Quit Date: 08/05/94 Tobacco: How many years used: 20 Second Hand Exposure: Yes Smoking risk assessment performed?: Yes Alcohol Intake: current Alcohol Intake frequency: holidays/special occasions only Drug use: Never Substance use type: does not use Household members: significant other Housing: house Communication Needs: Hard of Hearing Do you need help understanding health information?: Rarely Pets and animals: No Sexually active: Yes Do you think of yourself as: straight/heterosexual Current gender identity: female What is your relationship status?: How often do you talk on the phone with friends or family?: three or more times per week How often do you get together with friends or relatives?: twice per week How often do you attend pentecostal or mandaeism services?: 1-3 times per year Do you belong to any clubs or organized social groups?: no Panel score (0-1 are the most socially isolated patients): 1 What type of physical activity do you participate in: none and walking Duration: 15-30 minutes/day Frequency: 1-2 times per week Special heber needs: No Seatbelt use: always Drive intox or ride w/intox delivery driver assistant: No Do you feel safe at home: Yes Do you feel safe in your relationship?: Yes Female Reproductive History Menstrual Menopause type: surgical History History 3 Para 2 Hx # Term Pregnancies Multiple births Hx # Pregnancies Ectopic pregnancies AB induced Hx Number of Living Children 2 AB spontaneous 1 Exam Const General: cooperative, healthy appearing, no acute distress and well groomed Orientation: alert, awake and oriented x3 HENMT Head: laceration (2 cm superficial to central forehead) Ears: hearing grossly normal bilaterally and TM's normal bilaterally Mouth: oral mucosae normal and moist mucous membranes Throat: posterior oropharynx normal Eyes Visual Eugene: normal visual eugene by confrontation Alignment and Position: alignment normal Periorbital: periorbital findings normal Eyelids: eyelids normal Sclera: sclerae normal Cornea: corneas normal Pupils: PERRL EOM: EOM intact bilaterally Neck Neck: normal visual inspection, full ROM, no lymphadenopathy and no meningeal signs Resp Effort & Inspection: normal respiratory effort and able to speak in complete sentences Auscultation: clear to auscultation bilaterally Cardio Rate: regular rate Rhythm: regular rhythm Heart Sounds: S1 normal and S2 normal Neuro General: patient alert, patient awake, patient oriented x3, gait normal, tone normal, moves all extremities, CN's II-XI intact bilaterally and not confused Cognition: normal cognition Speech: speech normal Motor: muscle tone normal throughout, strength 5/5 throughout, no pronator drift, no movement abnormalities noted and no fasciculations Sensory Exam: no sensory deficits noted Extrem General: normal exam except as noted Left upper extremity: hand Details: neuromotor exam normal, neurosensory exam normal, tendon exam normal, tenderness Location: of the dorsal hand Location: over the 3rd metacarpal, vascular exam Details: radial pulse present, swelling Location: of the dorsal hand and ecchymosis Location: of the dorsal hand Location: over the 3rd metacarpal Course Vital Signs Vital signs: Vital Signs Temperature 36.7 C 01/05/23 16:18 Pulse 65 01/05/23 16:18 Respiratory Rate 18 01/05/23 16:18 Blood Pressure 143/64 H 01/05/23 16:18 Pulse Oximetry 95 01/05/23 16:18 Temperature 36.7 C 01/05/23 16:18 Temperature Source Skin 01/05/23 16:18 Pulse 65 01/05/23 16:18 Respiratory Rate 18 01/05/23 16:18 Respiratory Effort Normal, Non-Labored 01/05/23 16:37 Respiratory Depth Normal 01/05/23 16:37 Blood Pressure 143/64 H 01/05/23 16:18 Blood Pressure Position Sitting 01/05/23 16:18 Pulse Oximetry 95 01/05/23 16:18 Oxygen Delivery Method Room Air 01/05/23 16:18 Oxygen Flow Rate 0 01/05/23 16:18 Pain Level 3 01/05/23 16:18
[2023-01-05 18:16] VITALS: PULSE 88; RESP 18; O2SAT 98
== END 2023-01-05 18:17 | disposition home or self-care (01) ==
PROVIDERS: Emergency Provider Nurse Practitioner Family; PCP Nurse Practitioner Family
DX: S01.81XA Laceration without foreign body of other part of head, initial encounter (principal); W01.0XXA Fall on same level from slipping, tripping and stumbling without subsequent striking against object, initial encounter; S60.222A Contusion of left hand, initial encounter
CPT/HCPCS: 99284; 70450; 73130; 99283

== ENCOUNTER 2023-03-18 03:50 | Outpatient (CLI) | payer MEDICARE, OTHER, SELFPAY ==
[2023-03-18 12:23] LABS: HCT 44.7 % (36.0-46.0); HGB 14.7 g/dL (11.2-15.7); MCHC 32.9 % (32.0-36.0); MCV 100 fL (80-95); Platelet Count 238 10^3/uL (130-400); RBC 4.45 10^6/uL (3.93-5.22); RDW 13.5 % (11.7-14.6); WBC 6.76 10^3/uL (4.4-10.8)
[2023-03-18 12:43] LABS: Anion Gap 4.6 mmol/L (3-11); BUN 10 mg/dL (7-18); CO2 33.4 mmol/L (21.0-32.0); CREATININE 0.8 mg/dL (0.55-1.02); Calcium 9.4 mg/dL (8.5-10.1); Calculated LDL 78 mg/dL (<100); Chloride 102 mmol/L (98-107); Cholesterol 142 mg/dL (<200); Estimated GFR 77.75 (mL/min/1.73m2); Glucose 122 mg/dL (74-106); HDL Cholesterol 43 mg/dL (40-60); Potassium 3.9 mmol/L (3.5-5.1); Sodium 140 mmol/L (136-145); Triglyceride 109 mg/dL (<150)
[2023-03-18 13:11] LABS: Hemoglobin A1C 5.9 % (<5.7)
== END 2023-03-18 03:51 | disposition home or self-care (01) ==
LOC: LOS 03:50
PROVIDERS: PCP Nurse Practitioner Family; Visit Provider Nurse Practitioner Family
DX: E03.9 Hypothyroidism, unspecified (principal); E78.5 Hyperlipidemia, unspecified; F41.1 Generalized anxiety disorder; I10 Essential (primary) hypertension; R20.8 Other disturbances of skin sensation; R73.03 Prediabetes; Z00.00 Encounter for general adult medical examination without abnormal findings
CPT/HCPCS: 36415; 80048; 80061; 85027; 83036; 84443

== ENCOUNTER → 2023-11-04 04:22 | Outpatient (CLI) | payer MEDICARE, OTHER, SELFPAY ==
--- NOTE | 2023-11-04 07:15 | DI.MAMMO_ITS ---
Exam(s) MAMMO SCREENING EXAM: MAMMO SCREENING CLINICAL HISTORY: screening,Z12.39 TECHNIQUE: Bilateral full field digital CC and MLO mammographic images were obtained with 3D tomosyn thesis and utilizing computer aided detection (CAD). COMPARISON: Available for comparison. FINDINGS: Masses/Architectural Distortion: None seen. Microcalcifications: No suspicious pleomorphic-type are seen. Stable benign type calcifications are s een in the breasts. Skin Thickening/Nipple Retraction: None. IMPRESSION: 1. No significant interval change with no specific features of malignancy noted. 2. Unless there is more urgent need, screening mammography is recommended, as per [employer] guidelines. BI-RADS Category 2 - Benign Findings Breast Density - Category B - Scattered areas of fibroglandular density Breast density category C or D implies that the patient has dense breast tissue. Dense breast tissue is very common and is not abnormal but dense breast tissue can make it harder to find cancer on a ma mmogram. Also, dense breast tissue may increase their breast cancer risk. This information about the result of the mammogram report was provided to the patient to raise their awareness. Use this report when you speak with the patient about their risks for breast cancer, which includes their family hist ory. At that time, you may recommend for more screening tests (Ultrasound or MRI) as they might be us eful based on their risk. A negative radiographic report should not delay biopsy if a dominant or clinically suspicious mass is present. Up to ten percent of cancers are not identified on mammography. A negative report may reinforce clinical impression. Adenosis and dense breasts may obscure an underlying neoplasm. False positive reports average 6 to 10%. Patient will receive a letter notifying them of these results.
== END ==
PROVIDERS: PCP Nurse Practitioner Family; Visit Provider Nurse Practitioner Family
DX: Z12.31 Encounter for screening mammogram for malignant neoplasm of breast (principal)
CPT/HCPCS: 77063; 77067

== ENCOUNTER 2024-03-20 01:52 | Outpatient (CLI) | payer MEDICARE, OTHER, SELFPAY ==
[2024-03-20 13:38] LABS: Anion Gap 9.6 mmol/L (3-11); BUN 11 mg/dL (7-18); CO2 30.4 mmol/L (21.0-32.0); CREATININE 0.7 mg/dL (0.55-1.02); Calcium 9.5 mg/dL (8.5-10.1); Calculated LDL 71 mg/dL (<100); Chloride 101 mmol/L (98-107); Cholesterol 139 mg/dL (<200); Glucose 125 mg/dL (74-106); HDL Cholesterol 46 mg/dL (40-60); Potassium 3.7 mmol/L (3.5-5.1); Sodium 141 mmol/L (136-145); TSH (W/Ref FT4) 4.09 uIU/mL (0.36-3.74); Triglyceride 111 mg/dL (<150)
[2024-03-20 14:00] LABS: FREE T4 1.19 ng/dL (0.76-1.46)
== END 2024-03-20 01:53 | disposition home or self-care (01) ==
LOC: LOS 01:53
PROVIDERS: PCP Nurse Practitioner Family; Visit Provider Nurse Practitioner Family
DX: Z00.00 Encounter for general adult medical examination without abnormal findings (principal); E03.9 Hypothyroidism, unspecified; I10 Essential (primary) hypertension; R73.03 Prediabetes; E78.5 Hyperlipidemia, unspecified; R20.8 Other disturbances of skin sensation; F41.1 Generalized anxiety disorder
CPT/HCPCS: 36415; 80048; 80061; 83036; 84439; 84443

== ENCOUNTER 2025-01-26 02:34 | Outpatient (CLI) | payer MEDICARE, OTHER, SELFPAY ==
--- NOTE | 2025-01-26 07:30 | DI.RAD_ITS ---
Exam(s) XR HIP LT COMPLETE AP PELVIS EXAM: XR HIP LT COMPLETE AP PELVIS CLINICAL HISTORY: worsening left hip pain,M25.552. TECHNIQUE: 2D digital imaging was performed. Two views. COMPARISON: No exams were available for comparison FINDINGS: BONES: No acute fracture is present. No bony destructive lesion is seen. JOINTS: No dislocation present. There is a right hip prosthesis. There are no surrounding abnormal lucencies. There is moderate narrowing of left hip joint space. There is spurring at the acetabulum and margin of the femoral head. There are small subchondral cysts with the acetabulum and superior femoral head. There are mild degenerative changes of the SI joints. There is sclerosis at the pubic symphysis. Degenerative changes are also noted in the lower lumbar spine. SOFT TISSUE: Normal. IMPRESSION: Moderate to severe degenerative changes of the left hip. Unremarkable right hip prosthesis. DATA REPOSITORY: RADIATION DOSE DELIVERED:
== END 2025-01-26 02:54 ==
LOC: DI 02:34
PROVIDERS: PCP Nurse Practitioner Family; Visit Provider Nurse Practitioner Family
DX: M25.552 Pain in left hip (principal)
CPT/HCPCS: 73502

== ENCOUNTER 2025-03-25 00:59 | Outpatient (CLI) | payer MEDICARE, OTHER, SELFPAY ==
[2025-03-25 13:10] LABS: Anion Gap 5.6 mmol/L (3-11); BUN 15 mg/dL (7-18); CO2 33.4 mmol/L (21.0-32.0); Calcium 9.5 mg/dL (8.5-10.1); Calculated LDL 75 mg/dL (<100); Chloride 104 mmol/L (98-107); Cholesterol 137 mg/dL (<200); Estimated GFR 93.55 (mL/min/1.73m2); Glucose 121 mg/dL (74-106); HDL Cholesterol 40 mg/dL (>or=50); Potassium 4.5 mmol/L (3.5-5.1); Sodium 143 mmol/L (136-145); TSH (W/Ref FT4) 0.56 uIU/mL (0.36-3.74); Triglyceride 111 mg/dL (<150)
[2025-03-25 13:49] LABS: Hemoglobin A1C 5.8 % (<5.7)
== END 2025-03-25 01:00 | disposition home or self-care (01) ==
LOC: LOS 01:00
PROVIDERS: PCP Nurse Practitioner Family; Visit Provider Nurse Practitioner Family
DX: Z00.00 Encounter for general adult medical examination without abnormal findings (principal); I10 Essential (primary) hypertension; E78.5 Hyperlipidemia, unspecified; E03.9 Hypothyroidism, unspecified; R73.03 Prediabetes; F41.1 Generalized anxiety disorder
CPT/HCPCS: 36415; 80048; 80061; 83036; 84443

== ENCOUNTER 2025-03-30 02:13 | Outpatient (CLI) | payer MEDICARE, OTHER, SELFPAY ==
--- NOTE | 2025-03-30 07:00 | DI.MAMMO_ITS ---
Exam(s) MAMMO SCREENING EXAM: MAMMO SCREENING CLINICAL HISTORY: screening,z12.39 TECHNIQUE: Bilateral full field digital CC and MLO mammographic images were obtained with 3D tomosynthesis and utilizing computer aided detection (CAD). COMPARISON: Comparison is made with prior examinations. FINDINGS: Masses/Architectural Distortion: No suspicious masses or areas of architectural distortion are present. Microcalcifications: No suspicious pleomorphic-type are seen. There are stable benign type calcifications in both breasts. Skin Thickening/Nipple Retraction: None. IMPRESSION: 1. No significant interval change with no specific features of malignancy noted. 2. Unless there is more urgent need, screening mammography is recommended, as per [employer] guidelines. BI-RADS Category 2 - Benign Findings Breast Density - Category B - There are scattered areas of fibroglandular density. Breast density Category C or D implies that the patient has dense breast tissue. Dense breast tissue can make it harder to find cancer on a mammogram. Dense breast tissue is also associated with an increased risk of breast cancer. This information about the result of the mammogram report was provided to the patient to raise their awareness. Use this report when you speak with the patient about their risks for breast cancer, which includes their family history. At that time, you may recommend additional screening tests (Ultrasound or MRI) as these tests may add significant information. A negative radiographic report should not delay biopsy if a dominant or clinically suspicious mass is present. Up to ten percent of cancers are not identified on mammography. A negative report may reinforce clinical impression. Adenosis and dense breasts may obscure an underlying neoplasm. False positive reports average 6 to 10%. Patient will receive a letter notifying them of these results.
== END 2025-03-30 02:33 ==
PROVIDERS: PCP Nurse Practitioner Family; Visit Provider Nurse Practitioner Family
DX: Z12.31 Encounter for screening mammogram for malignant neoplasm of breast (principal); R92.323 Mammographic fibroglandular density, bilateral breasts
CPT/HCPCS: 77063; 77067

== ENCOUNTER → 2025-05-13 12:53 | Outpatient (BNVA) | payer MEDICARE, OTHER, SELFPAY | PROVIDERS: PCP Nurse Practitioner Family; Referring Provider Nurse Practitioner Family; Visit Provider Student in an Organized Health Care Education/Training Program | DX: M16.12 Unilateral primary osteoarthritis, left hip (principal) | CPT/HCPCS: 99214 ==

== ENCOUNTER 2025-06-02 02:02 | Outpatient (CLI) | payer MEDICARE, OTHER, SELFPAY ==
[2025-06-02 13:46] LABS: HCT 42.0 % (36.0-46.0); HGB 13.7 g/dL (11.2-15.7); MCH 32.5 pg (27.0-33.0); MCHC 32.6 % (32.0-36.0); MCV 100 fL (80-95); MPV 9.6 fL (8.0-11.0); Platelet Count 249 10^3/uL (130-400); RBC 4.21 10^6/uL (3.93-5.22); RDW 13.7 % (11.7-14.6); RDW-SD 50.4 fL; WBC 7.61 10^3/uL (4.4-10.8)
[2025-06-02 14:35] LABS: Anion Gap 7.3 mmol/L (3-11); BUN 12 mg/dL (7-18); CO2 31.7 mmol/L (21.0-32.0); Calcium 9.7 mg/dL (8.5-10.1); Chloride 102 mmol/L (98-107); Estimated GFR 93.55 (mL/min/1.73m2); Glucose 81 mg/dL (74-106); Potassium 4.2 mmol/L (3.5-5.1); Sodium 141 mmol/L (136-145)
== END 2025-06-02 02:03 | disposition home or self-care (01) ==
LOC: LBO 02:02
PROVIDERS: PCP Nurse Practitioner Family; Visit Provider Student in an Organized Health Care Education/Training Program
DX: M16.12 Unilateral primary osteoarthritis, left hip (principal); Z01.818 Encounter for other preprocedural examination
CPT/HCPCS: 36415; 80048; 85027

== ENCOUNTER 2025-06-09 05:59 | Day surgery (SDC) | payer MEDICARE, OTHER, SELFPAY ==
[2025-06-09] VITALS (28 sets, daily range): BP systolic 117–161; BP diastolic 48–87; PULSE 52–64; RESP 10–21; TEMP 36.4–37; O2SAT 89–96; BMI 35.8
[2025-06-09] MEDS: Celecoxib 200 MG CAP 400 MG PO (06:16)
[2025-06-09] MEDS: Acetaminophen 500 MG TAB 1000 MG PO (06:16)
[2025-06-09] MEDS: Lactated Ringers 1,000 ML 80 ML IV (06:38)
--- NOTE | 2025-06-09 06:47 | W.ANESPRE ---
General Info Date of Service Date Performed: 06/09/25 Height: 5 ft 4.25 in Weight: 95.4 kg Body Mass Index (BMI): 35.8 Surgical Procedure: Operation Date: 06/09/25 07:50 Proposed Procedure Side Surgeon p Hip Total Hip Anterior Left Rich Vanegas MD Meds Allergies and Home Medications Allergies Allergy/AdvReac Type Severity Reaction Status Date / Time Sulfa (Sulfonamide Allergy Intermediate corneal Verified 06/09/25 06:14 Antibiotics) infection adhesive tape Allergy Mild Rash, Cut Verified 06/09/25 06:14 murphy lisinopril AdvReac Cough Verified 06/09/25 06:14 Home Medication Medication Instructions Recorded multivitamin (Daily Multi-Vitamin 1 ea PO DAILY 10/21/14 tablet) triamcinolone acetonide 0.1 % 1 applic topical DAILY PRN 03/16/24 topical cream dermatitis #80 grams levothyroxine 100 mcg tablet 100 mcg PO DAILY #90 tab-caps 08/25/24 hydrochlorothiazide 25 mg tablet 25 mg PO DAILY #90 tab-caps 02/03/25 amoxicillin 500 mg capsule 2,000 mg (4 x 500 mg) PO ONCE PRN 03/22/25 Antibiotic prophylaxis for dental procedure #20 caps escitalopram oxalate 10 mg tablet 10 mg PO DAILY #90 tab-caps 03/22/25 (Lexapro) metoprolol succinate 50 mg 50 mg PO DAILY #90 tabs 03/22/25 tablet,extended release 24 hr simvastatin 20 mg tablet 20 mg PO HS #90 tab-caps 03/22/25 acetaminophen 500 mg tablet 1,000 mg (2 x 500 mg) PO TID #90 06/09/25 tabs aspirin 81 mg tablet,delayed 81 mg PO BID #60 tabs 06/09/25 release celecoxib 200 mg capsule 200 mg PO BID #60 caps 06/09/25 dexamethasone 4 mg tablet 4 mg PO DAILY #2 tabs 06/09/25 docusate sodium 100 mg capsule 100 mg PO BID PRN #28 caps 06/09/25 oxycodone 5 mg tablet 5 mg PO Q4H PRN pain #12 tabs 06/09/25 pantoprazole 40 mg tablet,delayed 40 mg PO DAILY #14 tabs 06/09/25 release Current Visit Medications: Current Medications Generic Name Dose Route Start Last Admin Trade Name Freq PRN Reason Stop Dose Admin Acetaminophen 1,000 mg 06/09/25 06:00 06/09/25 06:16 Acetaminophen 500 Mg Tab PO 06/09/25 23:59 1,000 mg PREOP JESSE Administration Celecoxib 400 mg 06/09/25 06:00 06/09/25 06:16 Celecoxib 200 Mg Cap PO 06/09/25 23:59 400 mg PREOP JESSE Administration Ringer's Solution 1,000 mls @ 80 mls/hr 06/09/25 06:00 06/09/25 06:38 IV 06/09/25 23:59 80 mls/hr INFUSION JESSE Administration Cefazolin Sodium/Dextrose 2 gm in 50 mls @ 100 mls/hr 06/09/25 06:00 Ancef Duplex IVPB 06/09/25 23:59 PREOP JESSE Tranexamic Acid/Sodium Chloride 1,000 mg in 100 mls @ 600 mls/hr 06/09/25 06:00 IVPB 06/09/25 23:59 PREOP JESSE IV Miscellaneous Supplies 1 each 06/09/25 06:00 Iv Access IV 06/09/25 23:59 DIRECTED JESSE Sodium Chloride 0 ml 06/09/25 06:00 Normal Saline Flush 10 Ml Syr IV 06/09/25 23:59 PRN PRN Sodium Chloride 0 ml 06/09/25 06:00 Normal Saline 10 Ml Vial IJ 06/09/25 23:59 DIRECTED PRN Sterile Water 0 ml 06/09/25 06:00 Water,Injection,Sterile 10 Ml Vial IJ 06/09/25 23:59 DIRECTED PRN PFSH Active Problems Active Problems: Problem Status Onset Code Arthritis of left hip Acute M16.12 Burning sensation of feet Chronic R20.8 Obesity Chronic E66.9 Abnormal auditory perception Chronic H93.299 Generalized anxiety disorder Chronic F41.1 Pre-diabetes Chronic R73.03 Hypothyroidism Chronic E03.9 Hyperlipemia Chronic E78.5 Essential hypertension Chronic I10 Medical History Medical History Carpal tunnel syndrome of right wrist 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 Carpal tunnel syndrome S/p left endoscopic release 2014, right hasn't been treated yet Rosacea Surgical History Surgical History History of hip replacement (R) History of carpal tunnel surgery of right wrist (01/10/21) Status post Mohs surgery for squamous cell carcinoma of skin (05/19/20) S/P ORIF (open reduction internal fixation) fracture (08/27/19) Right proximal humerus S/P colonoscopy (03/26/16) S/P tonsillectomy (~195) H/O: hysterectomy (~1995) Ovaries remain History of left mastoidectomy (~1984) History of carpal tunnel surgery of left wrist (02/23/15) Status post right hip replacement (~2009) Tobacco Smoking/Tobacco Use Status: Former Tobacco Use Passive smoking exposure: No Second hand exposure: Yes Alcohol Alcohol Intake: current Alcohol intake frequency: holidays/special occasions only Substance Use Substance use: Never Substance use type: does not use Prental History History 3 Para 2 Hx # Term Pregnancies Multiple births Hx # Pregnancies Ectopic pregnancies AB induced Hx Number of Living Children 2 AB spontaneous 1 Vital Signs and Lab Results Vital Signs Most Recent Vital Signs in EMR: Most Recent Vital Signs Temp Pulse Resp BP Pulse Ox 37.0 C 64 17 147/62 H 96 06/09/25 06:10 06/09/25 06:10 06/09/25 06:10 06/09/25 06:10 06/09/25 06:10 Lab Results Complete Blood Count: WBC, (4.4-10.8) 7.61 10^3/uL 06/02/25, 13:07 RBC, (3.93-5.22) 4.21 10^6/uL 06/02/25, 13:07 Hgb, (11.2-15.7) 13.7 g/dL 06/02/25, 13:07 Hct, (36.0-46.0) 42.0 % 06/02/25, 13:07 Plt Count, (130-400) 249 10^3/uL 06/02/25, 13:07 Complete Metabolic Panel: Sodium, (136-145) 141 mmol/L 06/02/25, 13:07 Potassium, (3.5-5.1) 4.2 mmol/L 06/02/25, 13:07 Chloride, (98-107) 102 mmol/L 06/02/25, 13:07 Carbon Dioxide, (21.0-32.0) 31.7 mmol/L 06/02/25, 13:07 BUN, (7-18) 12 mg/dL 06/02/25, 13:07 Creatinine, (0.55-1.02) 0.6 mg/dL 06/02/25, 13:07 Est GFR (CKD-EPI 2020), (mL/min/1.73m2) 93.55 06/02/25, 13:07 Calcium, (8.5-10.1) 9.7 mg/dL 06/02/25, 13:07 Glucose, (74-106) 81 mg/dL 06/02/25, 13:07 Anesthesia Assessment and Plan Anesthesia History Personal History: No History of Anesthesia Complications Family History: No Family History of Anesthesia Complications Exercise Tolerance Exercise Tolerance: Metabolic Equivalents>4 Pertinent Negatives Pertinent Negatives: No Symptoms of GERD, No Major Cardiovascular Symptoms or Complaints and No Major Pulmonary Symptoms or Complaints Cardiac & Pulmonary Exam Cardiac Exam: Normal S1/S2 Heart Sounds Pulmonary Exam: Clear Bilateral Breath Sounds Implantable Cardiac Device Does patient have a Pacemaker or an ICD?: No Airway Exam Known Difficult Airway: No Mallampati Class: 3 Mouth Opening: Narrow (< 3cm) Thyromental Distance: Greater than 3 cm Neck Range of Motion: Full ROM Neck Circumference: Normal Teeth Condition: Normal Dentition ASA Classification ASA Score: ASA 2 Emergency Case?: No NPO Status NPO Status: NPO Clears >2 hours, Solids >8 hours Anesthesia Plan Resuscitation Status: Full Code Anesthesia Technique: Spinal Anesthesia Airway Planned: Natural Airway Monitors Used: Standard Monitors
--- NOTE | 2025-06-09 07:13 | W.PM.DSUDISC ---
Date of service: 06/09/25 Discharge Plan Disposition Patient Disposition: Home Condition: Good Discharge Details Reason For Visit: L THR Attending Provider: Rich Vanegas Primary Care Provider: Heidy Edwards Home Meds and New Rx's Prescriptions: New celecoxib 200 mg capsule 200 mg PO BID Qty: 60 0RF aspirin 81 mg tablet,delayed release (DR/EC) 81 mg PO BID Qty: 60 0RF acetaminophen 500 mg tablet 1,000 mg PO TID Qty: 90 3RF pantoprazole 40 mg tablet,delayed release (DR/EC) 40 mg PO DAILY Qty: 14 0RF dexamethasone 4 mg tablet 4 mg PO DAILY Qty: 2 0RF docusate sodium 100 mg capsule 100 mg PO BID PRNQty: 28 0RF oxycodone 5 mg tablet 5 mg PO Q4H MDD 6 tabs PRN (Reason: pain) Qty: 12 0RF Continued triamcinolone acetonide 0.1 % cream 1 applic TP DAILY PRN (Reason: dermatitis) Qty: 80 1RF amoxicillin 500 mg capsule 2,000 mg PO ONCE PRN (Reason: Antibiotic prophylaxis for dental procedure) Qty: 20 0RF Rx Instructions: Take 4 tablets 60min before dental procedure escitalopram oxalate [Lexapro] 10 mg tablet 10 mg PO DAILY Qty: 90 3RF metoprolol succinate 50 mg tablet extended release 24 hr 50 mg PO DAILY Qty: 90 3RF simvastatin 20 mg tablet 20 mg PO HS Qty: 90 3RF multivitamin [Daily Multi-Vitamin] 1 EACH tablet 1 ea PO DAILY levothyroxine 100 mcg tablet 100 mcg PO DAILY Qty: 90 3RF hydrochlorothiazide 25 mg tablet 25 mg PO DAILY Qty: 90 3RF Discontinued meloxicam 15 mg tablet 15 mg PO DAILY Qty: 90 3RF ibuprofen 800 mg tablet 800 mg PO Q8H PRN (Reason: pain) Qty: 60 0RF acetaminophen 500 mg Tablet 1,000 mg PO PRN PRN Discharge Instructions Additional Instructions: Total Hip Discharge Instructions Activity: The most important activity is to walk. You should try to take short walks a few times a day. You have no restrictions on movement or positioning, but do not try to force what you do. You will find some stiffness and weakness with hip flexion (lifting your knee). Do not try to strengthen this too early, continue to practice walking and stairs and this will come. - Outpatient physical therapy can be helpful to help return you to a normal gait and improve your flexibility and strength. This can start around 2 weeks. For some patients, it´s not necessary. Usually this is determined at the time of discharge or at the first post-operative visit. - You should wear the QUINTEN hose on both legs for 2 weeks. Dressing: Keep the surgical dressing in place for at least one week. After the first week it may be removed and replace with light gauze and tape or nothing. It may get wet after 3 days but avoid soaking the dressing. If it gets wet, just lightly pat dry. It is important to always keep some gauze between skin folds, especially when you are sitting. Spend some time with the wound exposed when you are lying flat as the incision does wrinkle onto itself. Medications: - You should take Tylenol and an anti-inflammatory Celebrex as your primary pain control medications. If the Celebrex is too expensive or not covered, please call the office for another alternative (Advil/Ibuprofen or Naproxen/Aleve). - You have been prescribed a stronger pain medication Oxycodone for breakthrough pain, take as needed as prescribed. - You have also been prescribed a stomach acid reduction agent Pantoprozole to help reduce stomach acid and reflux. - You have also been prescribed Decadron to help with post-operative nausea and pain. You will take this for two days starting tomorrow. - You will be taking Aspirin 81mg twice a day for DVT prevention unless instructed otherwise. - If you have constipation you should take Colace or Miralax (both [id number]). It takes most people 3-4 days to have a bowel movement. Follow-up: 2 weeks If you have any acute concerns or questions, please do not hesitate to contact the office at [phone]. You may contact Dr. Vanegas with any questions after hours through the hospital at [phone] or on his cell phone at [phone]. Stand Alone Forms: Portal Information Referrals: Rich Vanegas MD [ [facility] STAFF PHYSICIAN, Orthopaedic Surgical] Equipment/Supplies: Walker Activity:: Activity as Tolerated Shower/Bathe:: 72 hours Diet:: As Tolerated Discharge Orders Discharge Orders: Discharge Order (Routine); Ordered 06/09/25 Ordered By: Stepahn Herrera DS: Diagnosis Discharge Diagnosis (1) Arthritis of left hip: Status: Acute
[2025-06-09] MEDS: ceFAZolin 2 GM/50 ML BAG IVPB (07:45)
[2025-06-09] MEDS: TRANEXAMIC ACID/SOD. CHL. 1,000 MG/100 ML BAG 600 MG IVPB (07:50)
[2025-06-09] MEDS: Ketorolac 30 MG/ML VIAL (08:16)
[2025-06-09] MEDS: ROPIvacaine 0.2% 200 MG/100 ML BAG (08:16)
[2025-06-09] MEDS: EPINEPHrine 1 MG/ML AMP pres-free (08:16)
--- NOTE | 2025-06-09 08:54 | DI.RAD_ITS ---
Exam(s) XR HIP LT IN OR EXAM: XR HIP LT IN OR CLINICAL HISTORY: left hip arthritis TECHNIQUE: 2D and realtime digital imaging was performed. CONTRAST MATERIAL: Refer to procedure report. COMPARISON: CR XR HIP LT COMPLETE AP PELVIS from 01/26/2025 FINDINGS: Fluoroscopy was provided for Dr. Vanegas during the performance of a left total hip arthroplasty. Please refer to the procedure report for complete details. Ka,r=3.3 mGy IMPRESSION: RADIATION DOSE DELIVERED: 0.0 0.0 0
--- NOTE | 2025-06-09 09:06 | ROE_ITS ---
Operative Note Operative Note PRE-OP DIAGNOSIS: Left Hip Osteoarthritis POST-OP DIAGNOSIS: same PROCEDURE: Left Anterior Total Hip Arthroplasty with Intraoperative Navigation SURGEON: Rich Vanegas CONSERVATION PLANNER: Stephan Herrera ANESTHESIA TYPE: Spinal Refer to Anesthesia Record ESTIMATED BLOOD LOSS: 100 PATHOLOGY: none sent TOURNIQUET TIME: 0 COMPLICATIONS: None Patient was transported to: PACU Patient's condition: stable Implants: 1. Depuy [place] Acetabular Component, 52mm 2. Depuy Acetabular Liner, [id number] 3. Depuy Actis Standard Collared Femoral Stem, Size 5 4. Depuy Altrx Ceramic Femoral Head, Size 36+5mm Indications: I have seen Rosemary in clinic for symptoms of hip arthritis, confirmed with radiographic findings. She has exhausted nonoperative methods and was having significant limitations in daily function and desired better function and less pain. I discussed the technical details of a hip replacement. I explained the risks of the procedure to include, but not limited to, bleeding, infection, pain, stiffness, fracture, damage to nerves and vessels, damage to muscles and tendons, loosening, instability, leg length inequality, need for repeat procedure, blood clot and cardiopulmonary demise. Despite these risks, Rosemary elected to proceed. Findings: There was significant signs of arthritis throughout the hip. Procedure Description: Rosemary was greeted in the preoperative holding area where the correct side was identified and marked. The consent was reviewed with the patient and signed. The history and physical was updated. All questions were answered. [place]ion was taken back to the operating room. A spinal anesthestic was then administered. The feet were wrapped with cast padding and Coban and then placed into the boot liners and then into the boots. Care was taken to protect the skin and make sure the heels were fully down and the boots were stable. The patient was then positioned onto the HANA table. Both legs were held in a neutral position. SCDs were applied. The patient was then slid down onto a peroneal post. Prophylactic antibiotics in the form of Cefazolin were administered. 1g of Tranxemic Acid was given intravenously within 30 minutes of incision. The left leg was then prepped with Chloraprep and draped in a standard fashion. A second prep with Chloraprep was performed prior to placement of a shower-curtain type drape with Iodine impregnated skin protectio n. A timeout to confirm correct identity, side and site, procedure, allergies, anesthesia, and medical concerns was performed. An obliquely oriented incision was made starting lateral to the ASIS and running distal over the Tensor Fascia Carley (TFL) muscle belly toward the fibular head, approximately 10cm. The skin and soft tissue was dissected sharply, through Dequan´s fascia, and to the fascia of the TFL. With the fascia and superior border of the IT band identified, the fascia was incised with a new knife just above any perforators from the IT band. The TFL muscle belly was bluntly diss ected away from the fascia and moved laterally. The fat between TFL and rectus was identified to ensure the dissection was not within the TFL. Blunt dissection created space between abductors and the capsule and retractor was placed over the lateral femoral neck. The fibers of the rectus femoris tendon were identified and these were freed from the anterior capsule. A second cobra retractor was placed around the medial femoral neck. The TFL was further retracted laterally to show the deep fascia. Careful dissection through this layer identified three main crossing vessels of the lateral femoral circumflex. These were cauterized in multiple locations and then cut without any noticeable bleeding. The TFL was further released bluntly from the deep fascia to expose anterior hip capsule and fat The soft tissue orthopaedic retractor was then placed beneath the TFL and against sartorius and medial soft tissues to protect and retract the soft tissues. A T-capsulotomy was then performed starting at the superior lateral acetabulum and moving distally to the intertrochanteric ridge. These capsular flaps were tagged with a No. 1 Vicryl and elevated from within. The capsular flaps were released to the shoulder of the lateral neck and to the lesser trochanter to give excellent visualization of the proximal femur. A neck osteotomy was performed using an oscillating saw based on preoperative templates. This cut started in the shoulder and of the lateral neck and exited medially. The saw was at all times directed medially to avoid injury to the greater trochanter. Gross traction was applied to the leg and the osteotomy opened. The femoral head was removed with a corkscrew, making sure to protect the TFL on its exit. Traction was released after head removal. This was measured on the back table to determine the starting reamer size. Portions of the rectus obscuring visualization were minimally elevated off the superior acetabulum. An anterior retractor was placed over the anterior wall between capsule and labrum and attached to the Gripper retraction system. The femur was rotated to 90 degrees and medial capsule was fully released until the lesser trochanter was palpable and visible; the femur was returned to 30 degrees. A posterior retractor was placed similarly between capsule and labrum. This provided excellent visualization. The contents of the cotyloid fossa were removed with electrocautery and the labrum was removed with a knife. There was a notable floor osteophyte. There was significant chondromalacia of the superior acetabulum. Acetabular reaming began with a 47mm reamer. This first reaming was directed anterior to posterior and medial to get down to the true floor. This was inspected and reamed until the true floor was reached. The anterior retractor was then released and entry and exit was provided by traction on the capsular flaps. I then reamed sequentially up to a 52mm reamer where good fit was obtained. The larger reamers were oriented based on anatomical reference of the anterior and lateral rangel to ensure proper abduction and anteversion. Positioning and size was confirmed with the fluoroscopy. A 52mm Depuy [place] acetabular component was selected. The acetabulum was reamed around the periphery with the selected acetabular size to prevent a rim fit. The deep tissues were irrigated. The acetabular component was then impacted in a position of about 40-45 degrees of abduction and 15-20 degrees of anteversion, using the patient´s anatomy as the ultimate landmark. Fluoroscopy was used to confirm this. There was excellent lumite injector of the acetabular component and the inserting handle was removed. The acetabular liner, Depuy [id number] polyethylene liner, was inserted and lined up with the tines of the acetabular component. There was no soft tissue interposition. The liner was then impacted into position and confirmed to be well-seated. A portion of the marilia-articular cocktail was then injected around the acetabulum into the capsule and periosteum. This cocktail consisted of 123mg of Ropivacaine, 0.25mg of Epinephrine, 0.04mg of Clonidine, and 15mg of Ketorolac, diluted to 50cc. The leg was rotated to 120 degrees. Any remaining medial capsule was released until the lesser trochanter was easily palpable. A retractor was placed medially. The lateral capsule was further released into the shoulder to allow access to the greater trochanter. A [place] retractor was placed over the greater trochanter which allowed the trochanter to flip in front of the capsule for excellent exposure. The leg was brought down into maximal extension and 20 degrees of adduction while ensuring there was no impingement on the acetabulum. Any remnant capsule within the trochanter was released. Piriformis and obturator externis were identified and protected. There was excellent access to the proximal femur. The lateral neck remnant was removed with a rongeur. A blunt canal probe was used to identify the canal and trajectory for later broaching. A box osteotome initiated the broach course. A small curved rasp and a curved curette were used to work laterally. Broaching then began with a starter Actis broach. This was inserted manually around the trochanter and into the canal before mallet blows. The broach was seated to a few millimeters below the cut level based on the neck cut and the preoperative template. Sequential broaching was continued with the [employer] pneumatic broaching device until a tight fit was obtained with good rotational control of the femur. A trial standard neck was inserted along with a +1.5 trial head. The leg was brought out of extension and adduction and then reduced with traction and internal rotation. The leg was stable anteriorly in a position of 30 degrees of extension and 90 degrees of external rotation. Fluoroscopy was used to ensure there was no fracture and the stem was seated well. Leg lengths were checked with an AP pelvis and pelvic reference points. [employer] navigation system was used to confirm appropriate positioning and leg length and offset. Once content with the desired offset and leg lengths, the leg was brought back into extension, external rotation and adduction. The periosteum and surrounding tissue was injected with remaining portion of the marilia-articular cocktail. The proximal femur was irrigated as well as the deep tissues. The [employer]is standard collared stem, size 5, was then manually inserted into the proximal femur making sure to control rotation. It was then malleted into position with light blows, giving breaks to allow bone expansion and decrease risk of fracture. The selected Depuy Altrx Ceramic Head, size 36+5mm, was then placed onto the clean and dry trunnion and secured with impaction onto the tapered fit. The leg was brought back out of extension and adduction and reduced with traction and internal rotation. Stability was confirmed with no shuck at 90 degrees of external rotation and 30 degrees of extension. No impingement through range of motion arc. Final x-ray images were obtained with fluoroscopy to confirm adequate positioning and no intraoperative fracture. The deep tissues were thoroughly irrigated with Surgiphor, betadine solution. This was allowed to sit in the wound for 3 minutes before being thoroughly irrigated out with normal saline. The capsule was then reapproximated with the previously placed sutures and the indirect head of the rectus was inspected and reapproximated with a #1 Vicryl. The TFL fascia was finally closed with a No. 2 Stratafix, barbed suture. Deep tissues were then reapproximated with 0 Vicryl and a running 2-0 Vicryl. The skin was closed with a running 4-0 Monocryl in a subcuticular fashion. This was reinforced with skin glue. A Mepilex silver dressing was applied. At the end of the case, all counts were correct. Rosemary was transferred to the hospital bed without difficulty and suffering no apparent complication. Rosemary has a good prognosis. Physical therapy will start today and without restrictions, weight-bearing as tolerated. Aspirin 81mg BID will be used for DVT prophylaxis. Date of Procedure: 06/09/25
--- NOTE | 2025-06-09 09:32 | W.ANESPOSTOP ---
Postoperative Evaluation Date, Time and Location Date Performed: 06/09/25 Time Performed: 09:32 Patient Location: PACU Vital Signs Most Recent Imported Vital Signs: Most Recent Vital Signs Temp Pulse Resp BP Pulse Ox 36.5 C 54 L 16 145/51 H 95 06/09/25 09:26 06/09/25 09:26 06/09/25 09:26 06/09/25 09:26 06/09/25 09:26 Pain Score Most Recent Pain Score: Most Recent Pain Score Pain Level 0 06/09/25 09:26 Assessment Mental Status: Awake (Alert & Oriented to Patient Baseline) Airway and Respiratory Function: Patent airway with normal (patient baseline) respiratory exam Cardiovascular Function: Hemodynamically Stable Hydration Status: Adequately Hydrated Nausea & Vomiting: No Nausea or Vomiting Pain: Pt. Denies Any Pain Peripheral Nerve Block: Patient did not receive a nerve block
[2025-06-09] MEDS: fentaNYL 100 MCG/2 ML VIAL IVP (09:40)
[2025-06-09] MEDS: Tranexamic Acid 650 MG TAB 1300 MG PO (11:00)
--- NOTE | 2025-06-09 12:51 | PT.INIE ---
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 under spinal anesthesia on 06/09/2025. Post op uncomplicated. PMHX: [] Arthritis of left hip (Acute) Hypothyroidism (Chronic) Essential hypertension (Chronic) Pre-diabetes (Chronic) Obesity (Chronic) Hyperlipemia (Chronic) Generalized anxiety disorder (Chronic) Abnormal auditory perception (Chronic) Burning sensation of feet (Chronic) Medical History Carpal tunnel syndrome of right wrist 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History of branchial cleft cyst Carpal tunnel syndrome S/p left endoscopic release 2014, right hasn't been treated yetRosacea Surgical History History of carpal tunnel surgery of right wrist (01/10/21) Status post Mohs surgery for squamous cell carcinoma of skin (05/19/20) S/P ORIF (open reduction internal fixation) fracture (08/27/19) Right proximal humerusS/P colonoscopy (03/26/16) S/P tonsillectomy (~1955) H/O: hysterectomy (~1995) Ovaries remainHistory of left mastoidectomy (~1984) History of carpal tunnel surgery of left wrist (02/23/15) Status post right hip replacement (~2009) Social History/Home Situation: Pt lives in single family home with and cat. Pt will enter the home through their garage. The stairs (3 steps) to enter the home doesn’t have a railing. However, there are shelves on the right side the pt can used when ascending/descending the steps. Pt able to stay on first floor. Equipment Owned/DME: FWW, single point cane, and leg lifts, grab bars in bathroom Subjective: Pt reported she felt fine and her pain was a 3/10. She mentioned that this was her second JARET and she had her right side done 16 years ago, down in [place]. Pt also reported that her first JARET was from the posterior approach. Before approaching the stairs during ambulation, pt confirmed proper foot sequence to ambulate up and down stairs. DPTS confirmed proper sequence and gave verbal and tactile cues with hand placement to push through the railings. Objective: General Observation: When PT arrived pt was in the bathroom done with toiletry hygiene. PT assisted the pt back to the recliner to perform HEP exercises. Mental Status: Alert and oriented x4. Patient able to follow instructions, communicate any pain and discomfort she’s in. agreeable to participate in assessment Pain: 3/10 in left hip, stationary & during ambulation ROM: Right Upper Extremity: WFL Left Upper Extremity: WFL Right Lower Extremity: WFL Left Lower Extremity: WFL, except left knee flex 105, and Hip flexion 115 Strength: Right Upper Extremity: 5/5 Left Upper Extremity: 5/5 Right Lower Extremity: 5/5 Left Lower Extremity: Grossly 4-/5 Sensation: Intact Bed Mobility/Transfers: Supine to sit independent Sit to stand independent Stand to sit independent Bed to chair supervision with FWW Gait: Ambulation: Pt was able to ambulate a total of 155 with FWW with supervision of DPTS. Pt continuously alternated feet as she walked with FWW. Pt denied any report of lightheadedness, dizziness, or nausea. Pt reported pain in their hip 3/10 which is the same amount while she was in the recliner. Pt was amble to flex knee during swing phase, and fully extend during initial contact and terminal stance. Stairs: Before ambulation of stairs, DPTS reminded pt of proper hand/foot placement to insure proper technique for safety and movement. Pt was able to ambulate up/down 2 6-inch steps, and 3 4-inch steps x2 trials, once with hands on both rails, and once with a hand on one rail and the other on a single point cane.CGA Balance: Static Sitting: normal Dynamic Sitting: normal Static Standing: good Dynamic Standing: fair Exercises: BLE HEP: 1X5 Ankle Pumps: 1X5 Seated marches: 1X5 LAQ: 1X5 Glute isometrics: 1X5 Hold for 5 seconds Quad isometrics: 1X5 Hold for 5 seconds Special Tests: Mobility Limitations Standardized Measure [facility] 6 clicks Basic Mobility Inpatient Short Form: Raw Score: 22 CMS Score: 20.91% deficit Informed Consent/Education: Patient instructed in purpose of PT consult. Packet containing JARET exercise protocol has been given to patient. Education and training on initial set of exercises that can be done at home have been completed with patient. Assessment: Pt performed all the HEP exercise that were directed by PT through demonstration and description of exercise. Pt had some pain in their left hip 3/10 at rest and during ambulation. Pt ambulated a total of 155 feet with FWW and contact guard assist and cueing from DPTS for directions and proper pivot sequence. While ambulating the stairs with railings, as stated above, pt needed cueing form hand and foot sequence/placement. Pt has decreased strength in LLE compared bilaterally, decreased LLE knee and hip ROM compared to RLE, and instability during ambulation on level surfaces and stairs requiring supervision/CGA, patient would benefit from skilled PT after her next follow up appointment if these limitations are still present after 2 weeks of performing HEP. Patient presents with clinical signs and symptoms consistent with current/admitting diagnoses that have resulted to mobility limitations, gait instability, generalized weakness, and impairment of motor control as demonstrated by the following impairment level findings: 1. Decreased strength to left hip, quads, and hamstrings 2. Impaired standing balance without assistive device 3. Limitation of joint range of motion in Left hip and left knee 4. pain left hip 5. Impaired functional activity tolerance in standing. Impairments are contributing to the following functional limitations: 1. Inability to safely ambulate without assistive device 2. Increase completion time for mobility ADL performance 3. Increased fall risk 4. decreased ability to ambulate stairs independently Patient is assessed as a Low complexity based on the followin History: -year-old female with impairment level findings, functional limitations, and past medical history as indicated above Examination: Demonstrable impairment in strength, balance, and mobility level with underlying impairments and functional limitations as documented above Presentation: Evolving Decision Making: Low Goals: N/A. PT evaluation and 1-2 treatment sessions only for functional mobility training using recommended AD and for HEP instruction. Treatment: 37762: functional mobility with FWW in small spaces with SBA to simulate activity/ mobility within her home including bathroom, toilet transfers. Plan of Care/Treatment Plan: N/A. PT evaluation and 1-2 treatment session only for functional mobility training using recommended AD and for HEP instruction. DISCHARGE RECOMMENDATIONS: Home with HEP for two weeks prior to next follow up appointment. TREATMENT CODE/TIME: 60998, 49663/10:30-10:53 for 23 minutes total Thank you for the opportunity to participate in the care of this patient. Written by: Pranav Erickson DPTS Supervised by: Isabella Guzman, PT JB
== END 2025-06-09 11:11 | disposition home or self-care (01) ==
PROVIDERS: PCP Nurse Practitioner Family; Visit Provider Student in an Organized Health Care Education/Training Program
PROC: (CPT 27130; principal; 2025-06-09 07:30)
DX: M16.12 Unilateral primary osteoarthritis, left hip (principal)
CPT/HCPCS: 20985; 27130; 97161; 97530; 73501; C1776; J0166; J0690; J1100; J1885; J2250; J2371; J2401; J2405; J2704; J2795; J3010

== ENCOUNTER 2025-06-21 16:07 | Outpatient (CLI) | payer MEDICARE, OTHER, SELFPAY ==
--- NOTE | 2025-06-21 13:00 | DI.RAD_ITS ---
Exam(s) XR HIP LT COMPLETE AP PELVIS EXAM: XR HIP LT COMPLETE AP PELVIS CLINICAL HISTORY: 1ST POST OP S/P L JARET. TECHNIQUE: 2D digital imaging was performed. Three views. COMPARISON: CR XR HIP LT COMPLETE AP PELVIS from 01/26/2025 XA XR HIP LT IN OR from 06/09/2025 FINDINGS: BONES: No acute fracture is present. No bony destructive lesion is seen. JOINTS: No dislocation present. There are bilateral hip prostheses which show satisfactory alignment. The SI joints are unremarkable. The pubic symphysis shows some sclerosis SOFT TISSUE: Normal. IMPRESSION: Unremarkable bilateral hip prostheses. DATA REPOSITORY: RADIATION DOSE DELIVERED:
== END 2025-06-21 16:08 | disposition home or self-care (01) ==
LOC: DIORS 16:08
PROVIDERS: PCP Nurse Practitioner Family; Visit Provider Physician Assistant
DX: Z47.1 Aftercare following joint replacement surgery (principal); Z96.642 Presence of left artificial hip joint
CPT/HCPCS: 99024; 73502

== ENCOUNTER → 2025-07-23 10:48 | Outpatient (BNVA) | payer MEDICARE, OTHER, SELFPAY | PROVIDERS: PCP Nurse Practitioner Family; Referring Provider Nurse Practitioner Family; Visit Provider Physician Assistant | DX: Z47.1 Aftercare following joint replacement surgery (principal); Z96.642 Presence of left artificial hip joint | CPT/HCPCS: 99024 ==